=== PATIENT | female | born 1990 | race African-American/Black ===

== ENCOUNTER 2021-10-21 12:44 | Emergency (ER) | payer MEDICAID, SELFPAY ==
[2021-10-21 12:45] VITALS: BP 102/79; PULSE 82; RESP 16; TEMP 37.2; O2SAT 98; BMI 17.1
[2021-10-21 13:25] VITALS: O2SAT 98
--- NOTE | 2021-10-21 13:50 | RAD_ITS ---
STUDY: X-RAY CHEST REASON FOR EXAM: Female, 31 years old. CHEST PAIN cough TECHNIQUE: XR Chest 2 Views COMPARISON: None FINDINGS: There is no demonstrated pleural abnormality. Normal size heart. Normal mediastinum and harvey. Normal visualized pulmonary arteries. Normal visualized aortic arch and descending thoracic aorta. Normal visualized thoracic spine. Normal visualized ribs, clavicles, and shoulders. There is no demonstrated abnormality of the visualized soft tissue structures of the upper abdomen. RAD/Chest PA and Lateral IMPRESSION: There are no acute findings. Electronically Signed: Alec Schmitz MD at 14:05 EDT ,
[2021-10-21] MEDS: Ibuprofen 200 MG Tablet 400 MG PO (13:55)
--- NOTE | 2021-10-21 14:40 | EDS_ITS ---
HPI HPI - URI History of Present Illness Chief Complaint: Cough Informant: patient Narrative Narrative: Patient is a 31-year-old female with history of tobacco use presenting with cough. She notes she developed a cold 1 week ago and was recovering and feeling better when she started to feel worse today. She reports increased cough and now feels short of breath from coughing and her chest hurts when she coughs. She states her cough is been productive of some sputum. Has continued to have rhinorrhea. She denies any fever or chills. Did not take any medicine prior to arrival but has been using Vicks vapor rub. Denies any leg swelling. Denies any history of DVT or PE. Was worried she might have pneumonia so she came to the ER. Denies any known history of asthma. ROS ROS ED Constitutional Constitutional ED: Denies chills or fever(s) Eyes Eyes: Denies change in vision or diplopia ENT ENT ED: Reports rhinorrhea; Denies ear pain or sore throat Cardiovascular Cardiovascular: Reports chest pain; Denies palpitations Respiratory/Chest Respiratory/Chest: Reports cough; Denies dyspnea or dyspnea on exertion Gastrointestinal Gastrointestinal: Denies nausea or vomiting Musculoskeletal Musculoskeletal: Reports myalgias; Denies arthralgias Integumentary Denies rash Neurologic Neurologic: Denies headache(s) or weakness Psychiatric Psychiatric: Denies anxiety PFSH PFSH Medical History no medical history Home Medications albuterol sulfate 90 mcg/actuation aerosol inhaler (Ventolin HFA) 1 - 2 puff inhalation Q4H PRN PRN Wheezing or cough #1 inh 10/21/21 [Rx Last Taken Unknown] guaifenesin 600 mg tablet, extended release 12 hr (Mucinex) 600 mg PO Q12H PRN congestion #20 tabs 10/21/21 [Rx Last Taken Unknown] ibuprofen 400 mg tablet 400 mg PO Q6H PRN fever or pain #20 tabs 10/21/21 [Rx Last Taken Unknown] Allergy/AdvReac Type Severity Reaction Status Date / Time Penicillins [PCN] Allergy Hives Verified 10/21/21 12:45 Surgical History no surgical history Social History Smoking Status: Never smoker EXAM Physical Exam Const Vital Signs: 10/21/21 12:45 10/21/21 13:25 Temperature 98.9 F Temperature Source Temporal Pulse Rate 82 Respiratory Rate 16 Respiratory Effort Normal Respiratory Depth Normal Respiratory Pattern Normal Blood Pressure 102/79 Blood Pressure Mean 86 Pulse Ox 98 Oxygen Delivery Method Room Air Room Air Positive well nourished and well developed General Appearance ED: well developed HEENT Reports moist mucous membranes HEENT Narrative: Clear rhinorrhea present normocephalic and atraumatic Throat: posterior oropharynx normal Eyes PERRL and EOMs intact bilaterally Resp clear to auscultation bilaterally Resp Narrative: Coarse breath sounds scattered throughout Auscultation: Negative for rales or wheezes Cardio no murmurs Rate: regular rate Rhythm: regular rhythm GI non-tender and non-distended Palpation: soft Back/Spine no CVA tenderness Extremity normal to inspection and full ROM Neuro oriented x3 Sensorium / Orientation: alert Motor Exam: Negative for general weakness Psych mental status grossly normal Skin Lesions: no lesions Rashes: no rashes MDM MDM MDM Narrative Medical decision making narrative: Patient evaluated for worsening cough. She appears nontoxic and in no acute distress. She has normal vital signs. Chest x-ray obtained 2 view interpreted by myself as well as radiology shows no acute process. Suspect patient has bronchitis. Her chest pain seems to be associated with her coughing only. I do not think this is ACS. She has no risk factors for PE. She will be started on an albuterol inhaler , Motrin and Mucinex. Is given a work note per her request. Counseled return precautions. She verbalized agreement understands plan. Discharged home in stable condition. Is given a dose of Motrin in the emergency room. Radiography Diagnostic Testing: Clinical Impression(s) from Imaging Studies Chest X-Ray 10/21/21 13:50 IMPRESSION: There are no acute findings. Electronically Signed: Alec Schmitz MD at 14:05 EDT , Discharge Plan Triage Chief Complaint: Cough ED Provider: Caroline Cho Dx/Rx/DC Orders Clinical Impression: Bronchitis, Acute viral syndrome Instructions: ED Bronchitis with Wheezing (Adult) Prescriptions: New albuterol sulfate [Ventolin HFA] 90 mcg/actuation HFA aerosol inhaler 1 - 2 puff inhalation Q4H PRN PRN (Reason: Wheezing or cough) Qty: 1 0RF guaifenesin [Mucinex] 600 mg tablet extended release 12hr 600 mg PO Q12H PRN (Reason: congestion) Qty: 20 0RF ibuprofen 400 mg tablet 400 mg PO Q6H PRN (Reason: fever or pain) Qty: 20 0RF Primary Care Provider: Care Physician,No Primary Referrals: Hector Webster, [Med Staff - Insert Molding Operator] - Care Physician,No Primary [Primary Care Provider] - Disposition Disposition: Home, Self Care
== END 2021-10-21 15:10 | disposition home or self-care (01) ==
PROVIDERS: Emergency Provider Emergency Medicine; Visit Provider Emergency Medicine
DX: J40 Bronchitis, not specified as acute or chronic (principal); B34.9 Viral infection, unspecified
CPT/HCPCS: 71046; 99283

== ENCOUNTER 2021-11-07 13:19 | Emergency (ER) | payer MEDICAID, SELFPAY ==
[2021-11-07 13:21] VITALS: BP 105/63; PULSE 97; RESP 15; TEMP 36.8; O2SAT 100; BMI 17.4
--- NOTE | 2021-11-07 13:46 | ED.VIS.BACK ---
HPI History of Present Illness Chief Complaint: Back Informant: patient Onset/Context/Timing Onset: Month(s) Context: Gradual Onset Chronic pain exacerbated by: Lifting at work yesterday Injury: lifting Timing: Continuous Quality: Sharp, Aching and Burning Location: Lumbar and Buttock Worsened by: improves with Lifting and - (Deep breathing, cold weather) Relieved by: Medications (Ibuprofen) Associated Symptoms Associated Symptoms: Negative for Numbness, Tingling, Radiation to Right Leg, Radiation to Left Leg, Fever, Abdominal Pain, Dysuria, Unable to Ambulate, Unable to Transfer, Urinary Retention, Urinary Incontinence, Constipation or Fecal Incontinence Narrative Narrative: Patient presents with back pain that has been constant for months. Patient states it is gradually gotten worse. Patient states she was doing some lifting at work yesterday which made it worse. Patient states her pain is sharp, aching, and burning. Patient states her pain is mainly over her lower lumbar area and into her buttocks. Patient denies any pain going down her legs. Patient denies any paresthesias or weakness. Patient denies any bowel or bladder changes. Patient denies any saddle anesthesia. Patient states her pain is also worse with deep breathing and being in the cold. Patient states ibuprofen has been helping with the pain somewhat but it has not completely relieve the pain. PFSH PFSH Medical History no medical history no medical history Home Medications albuterol sulfate 90 mcg/actuation aerosol inhaler (Ventolin HFA) 1 - 2 puff inhalation Q4H PRN PRN Wheezing or cough #1 inh 10/21/21 [Rx Last Taken Unknown] guaifenesin 600 mg tablet, extended release 12 hr (Mucinex) 600 mg PO Q12H PRN congestion #20 tabs 10/21/21 [Rx Last Taken Unknown] ibuprofen 600 mg tablet 600 mg PO Q8H PRN PRN pain #20 TABLETS 11/07/21 [Rx Last Taken Unknown] Allergy/AdvReac Type Severity Reaction Status Date / Time Penicillins [PCN] Allergy Hives Verified 11/07/21 13:21 Surgical History (Updated 11/07/21 @ 13:[address] Mayur White DO) Hx of removal of cyst Social History Smoking Status: Current every day smoker tobacco type: cigarettes ROS ROS ED Constitutional Constitutional ED: Denies chills or fever(s) Eyes Eyes: Denies blurry vision or change in vision ENT ENT ED: Denies rhinorrhea or sore throat Cardiovascular Cardiovascular: Reports chest pain; Denies palpitations Respiratory/Chest Respiratory/Chest: Denies cough or dyspnea Gastrointestinal Gastrointestinal: Denies nausea or vomiting Genitourinary Genitourinary ED: Denies dysuria or hematuria Musculoskeletal Musculoskeletal: Reports back pain; Denies neck pain Integumentary Denies abscess or rash Neurologic Neurologic: Denies headache(s) or weakness Allergic/Immunologic Allergic/Immunologic ED: Denies mouth swelling or urticaria EXAM Physical Exam Const Vital Signs: 11/07/21 13:21 Temperature 98.2 F Temperature Source Temporal Pulse Rate 97 Respiratory Rate 15 Blood Pressure 105/63 Blood Pressure Mean 77 Pulse Ox 100 Oxygen Delivery Method Room Air Positive well nourished and well developed General Appearance ED: well developed and NAD HEENT Reports moist mucous membranes Neck supple and no JVD Back/Spine Back/Spine Narrative: There is tenderness and mild spasm of the lumbar paraspinal muscles. There is no midline tenderness. There is no bony crepitance or step-off. Range of motion was slightly limited in all motions of the lumbar spine secondary to pain. Straight leg raises were negative bilaterally. Strength is 5/5 bilaterally in lower extremities. There are no sensory deficits noted. Deep tendon reflexes are 2/4 bilaterally in the lower extremities. Lumbar Spine / Lower Back: ROM limited and straight leg raise negative bilaterally Extremity General Extremety ED: Negative for edema or tenderness General Extremity: Negative for edema Neuro oriented x3 and no sensory deficits noted Sensorium / Orientation: alert Motor Exam: strength 5/5 throughout Deep Tendon Reflexes: Rt Patellar (L4): 2+, Lt Patellar (L4): 2+, Rt Ankle (S1): 2+ and Lt Ankle (S1): 2+ Deep Tendon Reflexes Back: Rt Patellar (L4): 2+, Lt Patellar (L4): 2+, Rt Ankle (S1): 2+ and Lt Ankle (S1): 2+ Psych mental status grossly normal MDM MDM MDM Narrative Medical decision making narrative: Patient was given a dose of ibuprofen here. X-rays of the lumbar spine were obtained. There are 2 views. On my interpretation, there is no acute fracture or spondylolisthesis. There is a questionable scoliosis versus muscle spasm. Radiologist also interpreted the x-rays and agrees. Patient was advised of her findings. Patient was given a prescription for ibuprofen. Patient was instructed to use ice to the area. Patient was instructed to follow-up with her primary care physician in 5 to 7 days. Patient understood and was agreeable with the plan. All questions were answered. Radiography X-Ray: LS SPine, Read by ED Physician, Read by Radiologist, Normal and Normal Bony Alignment Diagnostic Testing: Clinical Impression(s) from Imaging Studies Lumbar Spine X-Ray 11/07/21 14:05 IMPRESSION: Normal x-ray examination of the lumbar spine. Electronically Signed: Niko Swann MD at 14:32 EDT Reading Location ID and State: [facility] / [place] , Service support , Discharge Plan Triage Chief Complaint: Back ED Provider: Mayur White Dx/Rx/DC Orders Clinical Impression: Acute low back pain, Lumbosacral strain Instructions: ED Back Sprain/Strain Prescriptions: New ibuprofen 600 mg tablet 600 mg PO Q8H PRN PRN (Reason: pain) Qty: 20 0RF Discontinued ibuprofen 400 mg tablet 400 mg PO Q6H PRN (Reason: fever or pain) Qty: 20 0RF No Action albuterol sulfate [Ventolin HFA] 90 mcg/actuation HFA aerosol inhaler 1 - 2 puff inhalation Q4H PRN PRN (Reason: Wheezing or cough) Qty: 1 0RF guaifenesin [Mucinex] 600 mg tablet extended release 12hr 600 mg PO Q12H PRN (Reason: congestion) Qty: 20 0RF Stand Alone Forms: ED Work / School Excuse Primary Care Provider: Care Physician,No Primary Referrals: Hector Webster DO [Med Staff - Interlocking Machine Operator] - 5-7 Days Care Physician,No Primary [Primary Care Provider] - Disposition Disposition: Home, Self Care
[2021-11-07] MEDS: Ibuprofen 600 MG Tablet PO (13:54)
--- NOTE | 2021-11-07 14:05 | RAD_ITS ---
STUDY: X-RAY - LUMBAR SPINE REASON FOR EXAM: Female, 31 years old. Injury/Pain CHRONIC BACK PAIN. NO INJURY. SCOLIOSIS. TECHNIQUE: 2 view(s) of the lumbar spine were obtained. COMPARISON: None FINDINGS: Normal lumbar lordosis. There is no substantial scoliosis. There is a normal alignment of the vertebrae. Normal vertebral bodies and endplates. Normal disc space heights. There is no demonstrated fracture or compression deformity. The soft tissue structures are unremarkable. RAD/Lumbar Spine 2 or 3 Views IMPRESSION: Normal x-ray examination of the lumbar spine. Electronically Signed: Niko Swann MD at 14:32 EDT ,
== END 2021-11-07 15:10 | disposition home or self-care (01) ==
PROVIDERS: Emergency Provider Emergency Medicine; Visit Provider Emergency Medicine
DX: S39.012A Strain of muscle, fascia and tendon of lower back, initial encounter (principal); F17.210 Nicotine dependence, cigarettes, uncomplicated; X58.XXXA Exposure to other specified factors, initial encounter
CPT/HCPCS: 72100; 99283

== ENCOUNTER 2024-10-01 16:49 | Emergency (ER) | payer MEDICAID, SELFPAY ==
[2024-10-01 16:49] VITALS: BP 110/86; PULSE 105; RESP 18; TEMP 36.6; O2SAT 100; BMI 18.0
--- NOTE | 2024-10-01 17:17 | EDS_ITS ---
HPI History of Present Illness Chief Complaint: Upper Extremity Injury PFSH PFS Home Medications ?Medication ?Instructions ?Recorded ?Last Taken ?Type albuterol sulfate 90 mcg/actuation 1 - 2 puff inhalati on Q4H PRN PRN 10/21/21 Unknown Rx aerosol inhaler (Ventolin HFA) Wheezing or cough #1 in h guaifenesin 600 mg tablet, 600 mg PO Q12H PRN congesti on #20 10/21/21 Unknown Rx extended release 12 hr (Mucinex) tabs ibuprofen 600 mg tablet 600 mg PO Q8H PRN PRN pain # 20 11/07/21 Unknown Rx TABLETS prednisone 20 mg tablet 20 mg PO DAILY #5 tabs 10/01 Unknown Rx Allergy/AdvReac Type Severity Reaction Status Date / Time Penicillins (PCN) Allergy Hives Verified 10/01/24 16:51 Family History no significant family his Surgical History Hx of removal of cyst Social History Smoking Status: Current every day smoker tobacco type: cigarettes EXAM Physical Exam Const Vital Signs: 10/01/24 16:49 Temperature 98 F Temperature Source Oral Pulse Rate 105 H Respiratory Rate 18 Blood Pressure 110/86 H Blood Pressure Mean 94 Pulse Ox 100 Oxygen Delivery Method Room Air MDM MDM MDM Narrative Medical decision making narrative: HISTORY OF PRESENT ILLNESS: Chief complaint: Shoulder/arm pain 33-year-old female states she pulled a muscle a few weeks ago and reinjured it recently. Notes 2 weeks ago she noted pain in the left paracervical region, left trapezius and left rhomboid muscle. Notes he got better until this past Thursday when she reinjured it by stretching. REVIEW OF SYSTEMS: Pertinent positives: Left shoulder arm pain Pertinent negatives: [Neck pain, numbness or tingling PHYSICAL EXAM: Nursing triage notes reviewed, Vital signs reviewed Constitutional: please see mdm HENT: MMM Eyes: Pupils equal round and reactive to light, Extraocular muscles intact Neck: No stridor, no JVD, full neck ROM, TTP over left lateral cervical musculature Back: TTP over left trapezius muscle left rhomboid muscle Lungs: Clear to auscultation, No wheezing or rales. No increased work of breathing, no conversational dyspnea, no accessory muscle use, no nasal flaring. No respiratory distress noted Heart: Regular rate and rhythm, No murmurs, No rubs and No gallops, 2+ distal pulses (radial, femoral, posterior tibial) in all extremities Extremities: No edema Neuro: Intact 5/5 strength with ok sign (median), intact finger abduction (ulnar) intact wrist extension (radial n). Intact sensation in the radial, ulnar, and median nerve distributions. Skin: No rash or lesions noted MEDICAL DECISION MAKING: Chief Complaint: please see HPI External records reviewed: Reviewed prior imaging studies Factors affecting care: none Social determinants of health: none History obtained from others: none Consults: none [facility] Narrative: Patient was initially hemodynamically stable, afebrile and nontoxic-appearing. Exam consistent musculoskeletal etiology. No sign of neurovascular compromise left upper extremity. Treated symptomatically anti-inflammatories Gave prescriptions for prednisone Encouraged rest, ice, lidocaine patches or other topical therapies along with anti-inflammatory such as ibuprofen. Pain reliever such as Tylenol. As well as prednisone. Strict return precautions were discussed. Sling was provided. The patient and/or family, caregivers express understanding. The patient and/or family, caregivers agrees with the plan. Shared decision making: I will have a discussion with the patient and or visitors regarding risk/benefits of further testing or admission. They will be made aware of of the risk/benefits inherent in this decision they will be given the opportunity to voice understanding. Total critical care time today provided was at least 0 minutes. This excludes separately billable procedures. Critical care time (if documented) is secondary to the patient having high probability of clinically significant/life threatening deterioration in the patient's condition which required my urgent intervention. Impression: 1. Cervical muscular strain 2. Trapezius muscle strain Dispo: Discharge home This note was generated with [employer] dictation software. It may contain incorrect words, spelling, and punctuation that were not noted in review of the chart prior to signing. Discharge Plan Triage Chief Complaint: Upper Extremity Injury ED Provider: Sagar Antonio Dx/Rx/DC Orders Instructions: ED Muscle Strain, Extremity Prescriptions: New prednisone 20 mg tablet 20 mg PO DAILY Qty: 5 0RF No Action albuterol sulfate [Ventolin HFA] 90 mcg/actuation HFA aerosol inhaler 1 - 2 puff inhalation Q4H PRN PRN (Reason: Wheezing or cough) Qty: 1 0RF guaifenesin [Mucinex] 600 mg tablet extended release 12hr 600 mg PO Q12H PRN (Reason: congestion) Qty: 20 0RF ibuprofen 600 mg tablet 600 mg PO Q8H PRN PRN (Reason: pain) Qty: 20 0RF Primary Care Provider: Care Physician,No Primary Referrals: Jacob Milner MD [Med Staff - Barge Captain] - Activity Restrictions/Additional Instructions: Thank you for trusting us with your care today! Your exam is consistent with a musculoskeletal strain. This resolves with rest, anti-inflammatories and slow return to activity. Please take prednisone as prescribed Please take Tylenol (2 pills, 650 mg), ibuprofen (2 pills, 400 mg) every 6 hours as needed for pain and fever control. Please use other topical pain relieving modalities such as lidocaine patches, IcyHot, diclofenac cream. Please return to the emergency department if your symptoms change or worsen. Please follow with your primary care physician for further outpatient evaluation and management. Print Language: Turkmen Disposition Disposition: Home, Self Care Discharge Date/Time: 10/01/24 17:58
--- OUTSIDE RECORDS SUMMARY | 2024-10-01 17:40 | XMS RPT_ITS | CCD ---
Author Organization [place] [employer] Inform ion Partnership [facility] Care Team Providers Care Academic Affairs Specialist Name Role Phone No, Physician Primary Care Provider UnavailAIDEN Vela Attending Unavai lable NO, PHYSICIAN Primary Care Unavailable AIDEN NOE Admitting Unavai lable NO, PHYSICIAN Primary Care Unavailable PRINCESS ADKINS Attending Unavailab le NO, PHYSICIAN Primary Care Unavailable NORMA NEWTON Attending Unavaila ble BURNEKANORMA Admitting Unavaila ble NO, PHYSICIAN Primary Care Unavailable LISE MAZARIEGOS Attending Unavailable LISE MAZARIEGOS Admitting Unavailable NO, PHYSICIAN Primary Care Unavailable ZOHRA COURTNEY Attending Unavailable ZOHRA COURTNEY Admitting Unavailable CHERELLE LOZA Attending Unavailable CHERELLE LOZA Primary Care Unavailable CHERELLE LOZA Admitting Unavailable CHERELLE LOZA Primary Care Unavailable Cherelle Loza Primary Care Provider No, Physician Primary Care Provider Unavailabl e Care Physician, No Primary Primary Care Unava ilable Caroline Cho Attending Unavailable Mayur White Attending Unavailable Care Physician, No Primary Primary Care Unava ilable Allergies Allergy Classification Reported Allergen(s) Allergy Type Date of Onset Reaction(s) Facility (13 sources) Penicillins; Translations: [Unknown] Propensity to adverse reactions to drug 11-19-2018 [facility] Medications Current Medications Medication Drug Class(es) Dates Sig (Normalized) Sig (Original) [id number] 200 actuat albuterol 0.09 mg/actuat metered dose inhaler (2 sources) beta2-Adrenergic Agonist Start: 10-21-2021 take 1 puff(s) by inhalation every four hours as needed Albuterol Sulfate (Ventolin Hfa) 90 mcg/actuation HFA aerosol inhaler Active 1 - 2 PUFF INHALATION EVERY 4 HOURS NEEDED October 21, 2021 12:00am famotidine 20 mg oral tablet (5 sources) Histamine-2 Receptor Antagonist Start: 12-13-2018 End: 12-16-2018 take 1 tablet by mouth twice daily famotidine (PEPCID) 20 MG tablet Take 1 (one) tablet (20 mg total) by mouth 2 (two) times a day for 3 days . 6 tablet 0 12/13/2018 Active 12 hr guaiFENesin 600 mg extended release oral tablet (2 sources) Start: 10-21-2021 take 1 tablet by mouth every twelve hours, then take 1 tablet by mouth every twelve hours Guaifenesin (Mucinex) 600 mg tablet extended release 12hr Active 600 MG PO Q12H October 21, 2021 12:00am homatropine methylbromide 0.3 mg/ml / HYDROcodone bitartrate 1 mg/ml oral solution (2 sources) Opioid Agonist, Cholinergic Muscarinic Agonist Start: 11-19-2018 End: 11-29-2018 HYDROcodone-homat ropine (HYCODAN) 5-1.5 mg/5 mL (5 mL) syrup Indications: Community acquired pneumonia of right lower lobe of lung (HCC) Take 5 mL by mouth every 6 (six) hours as needed for cough . 120 mL 0 11/19/2018 11/29/2018 Active hydrOXYzine pamoate 50 mg oral capsule (1 source) Antihistamine Start: 12-13-2018 End: 01-12-2019 take 1 capsule by mouth three times daily as needed hydrOXYzine (VISTARIL) 50 MG capsule Take 1 (one) capsule (50 mg total) by mouth 3 (three) times a day as needed for itching . 30 capsule 0 12/13/2018 01/12/2019 Active ibuprofen 600 mg oral tablet (3 sources) Nonsteroidal Anti-inflammatory Drug Start: 11-07-2021 take 600 mg by mouth every eight hours as needed Ibuprofen Active 600 MG PO EVERY 8 HOURS NEEDED November 07, 2021 12:00am Start: 10-21-2021 End: 11-07-2021 take 400 mg by mouth every six hours Ibuprofen Discontinued 400 MG PO EVERY 6 HOURS October 21, 2021 12:00am November 07, 2021 3:04pm indomethacin 25 mg oral capsule (1 source) Nonsteroidal Anti-inflammatory Drug Start: 11-25-2018 End: 12-02-2018 take 1 capsule by mouth three times daily at mealtime indomethacin (INDOCIN) 25 MG capsule Take 1 (one) capsule (25 mg total) by mouth 3 (three) times a day with meals for 7 days . 21 capsule 0 11/25/2018 12/02/2018 Active miconazole nitrate 20 mg/ml vaginal cream (2 sources) Azole Antifungal Start: 08-26-2019 End: 09-02-2019 miconazole (Miconazole 7) 2 % vaginal cream Indications: Vaginal discharge Insert 1 applicator into the vagina nightly for 7 days . 45 g 0 08/26/2019 09/02/2019 Active oseltamivir 75 mg oral capsule (1 source) Neuraminidase Inhibitor Start: 01-19-2019 End: 01-24-2019 take 1 capsule by mouth twice daily oseltamivir (TAMIFLU) 75 MG capsule Take 1 (one) capsule (75 mg total) by mouth 2 (two) times a day for 5 days . 10 capsule 0 01/19/2019 01/24/2019 Active predniSONE 50 mg oral tablet (1 source) Start: 12-13-2018 End: 12-18-2018 take 1 tablet by mouth once daily predniSONE (DELTASONE) 50 MG tablet Take 1 (one) tablet (50 mg total) by mouth daily for 5 days . 5 tablet 0 12/13/2018 12/18/2018 Active Completed/Discontinued Medications Medication Drug Class(es) Dates Sig (Normalized) Sig (Original) acetaminophen 325 mg oral tablet (2 sources) Start: 01-19-2019 End: 01-19-2019 acetaminophen (TYLENOL) tablet 975 mg Start: 12-07-2018 End: 12-07-2018 acetaminophen (TYLENOL) tabl et 975 mg azithromycin 250 mg oral tablet (4 sources) Macrolide Antimicrobial Start: 11-19-2018 End: 12-13-2018 azithromycin (ZITHROMAX) 250 MG tablet zpack . 6 tablet 0 11/19/2018 12/13/2018 Discontinued dexamethasone phosphate 10 mg/ml injectable solution (1 source) Corticosteroid Start: 12-13-2018 End: 12-13-2018 dexamethasone (DECADRON) injection 10 mg diphenhydrAMINE hydrochloride 25 mg oral tablet (1 source) Histamine-1 Receptor Antagonist Start: 12-13-2018 End: 12-13-2018 diphenhydrAMINE (BENADRYL) oral solid 50 mg 1 ml ketorolac tromethamine 30 mg/ml injection (2 sources) Nonsteroidal Anti-inflammatory Drug, Cyclooxygenase Inhibitor Start: 01-19-2019 End: 01-19-2019 ketorolac (TORADOL) injection 30 mg Start: 11-19-2018 End: 11-19-2018 ketorolac (TORADOL) injectio n 60 mg potassium bicarbonate 25 meq effervescent oral tablet (1 source) Start: 12-07-2018 End: 12-07-2018 potassium bicarbonate (K-LYTE) 25 MEQ disintegrating tablet 50 mEq prenat.vits,bre,min-iro n-folic Tab (2 sources) Start: 12-07-2018 End: 12-13-2018 take 1 tablet by mouth once daily prenat.vits,bre,min-iron- folic Tab Take 1 tablet by mouth daily . 30 each 0 12/07/2018 12/13/2018 Discontinued Start: 12-07-2018 End: 01-06-2019 take 1 tablet by mouth once daily prenat.vits,bre,thv-paer-wxhic Tab Take 1 tablet by mouth daily . 30 each 0 12/07/2018 01/06/2019 Active Sodium Chloride (2 sources) Start: 12-07-2018 End: 12-07-2018 sodium chloride (PF) (NS) fl ush 5 mL Start: 11-24-2018 End: 11-25-2018 sodium chloride (PF) (NS) fl ush 5 mL Problems Active Problems Problem Classification Problem Date Documented Da te Episodic/Chronic Chronic obstructive pulmonary disease and bronchiectasis (2 sources) Bronchitis; Translations: [Bronchitis, not specified as acute or chronic] Episodic Deficiency and other anemia (2 sources) Anemia; Translations: [Anemia, unspecified type] Episodic Fluid and electrolyte disorders (1 source) Hypokalemia; Translations: [Hypokalemia] Episodic Genitourinary symptoms and ill-defined conditions (1 source) Increased frequency of urination; Translations: [Urinary frequency] Episodic Influenza (1 source) Influenza due to Influenza virus, type B; Translations: [Influenza B] Episodic Nonspecific chest pain (2 sources) Chest pain; Translations: [Chest pain, unspecified type] Episodic Other female genital disorders (1 source) Vaginal discharge; Translations: [Vaginal discharge] Episodic Other lower respiratory disease (1 source) Cough; Translations: [Cough] Episodic Other lower respiratory disease (1 source) Dyspnea; Translations: [Shortness of breath] Episodic Pneumonia (except that caused by tuberculosis or sexually transmitted disease) (1 source) Community acquired pneumonia; Translations: [Community acquired pneumonia of right lower lobe of lung (HCC)] Episodic Spondylosis; intervertebral disc disorders; other back problems (1 source) Acute low back pain; Translations: [Acute low back pain] Episodic Sprains and strains (1 source) Lumbosacral strain; Translations: [Strain of muscle, fascia and tendon of lower back, initial encounter] Episodic Unclassified (1 source) Low back pain, unspecified; Translations: [Low back pain, unspecified] Onset: 11-20-2021 Unclassified (1 source) Cough, unspecified; Translations: [Cough, unspecified] Onset: 11-18-2021 Viral infection (2 sources) Acute viral disease; Translations: [Viral infection, unspecified] Episodic Past or Other Problems Problem Classification Problem Date Documented Da te Episodic/Chronic Allergic reactions (1 source) Allergic urticaria; Translations: [Allergic urticaria] Episodic Results Test Name Value Interpretation Reference Range Facility Emergency Department Summary on 11-07-2021 Emergency Department Summary [facility] Medical Records Department [address] [place] [address] Emergency Department Summary 11/07/21 MR#: [id number] Acct: [id number] Name: PIPE GOMEZ Rep #: [id number] : 1990 31 From: Mayur White DO PCP: Care Physician,No Primary Status:DEP ER Location: ED HPI History of Present Illness Chief Complaint: Back Informant: patient Onset/Context/Timing Onset: Month(s) Context: Gradual Onset Chronic pain exacerbated by: Lifting at work yesterday Injury: lifting Timing: Continuous Quality: Sharp, Aching and Burning Location: Lumbar and Buttock Worsened by: improves with Lifting and - (Deep breathing, cold weather) Relieved by: Medications (Ibuprofen) Associated Symptoms Associated Symptoms: Negative for Numbness, Tingling, Radiation to Right Leg, Radiation to Left Leg, Fever, Abdominal Pain, Dysuria, Unable to Ambulate, Unable to Transfer, Urinary Retention, Urinary Incontinence, Constipation or Fecal Incontinence Narrative Narrative: Patient presents with back pain that has been constant for months. Patient states it is gradually gotten worse. Patient states she was doing some lifting at work yesterday which made it worse. Patient states her pain is sharp, aching, and burning. Patient states her pain is mainly over her lower lumbar area and into her buttocks. Patient denies any pain going down her legs. Patient denies any paresthesias or weakness. Patient denies any bowel or bladder changes. Patient denies any saddle anesthesia. Patient states her pain is also worse with deep breathing and being in the cold. Patient states ibuprofen has been helping with the pain somewhat but it has not completely relieve the pain. PFSH PFSH Medical History no medical history no medical history Home Medications albuterol sulfate 90 mcg/actuation aerosol inhaler (Ventolin HFA) 1 - 2 puff inhalation Q4H PRN PRN Wheezing or cough #1 inh 10/21/21 [Rx Last Taken Unknown] guaifenesin 600 mg tablet, extended release 12 hr (Mucinex) 600 mg PO Q12H PRN congestion #20 tabs 10/21/21 [Rx Last Taken Unknown] ibuprofen 600 mg tablet 600 mg PO Q8H PRN PRN pain #20 TABLETS 11/07/21 [Rx Last Taken Unknown] Allergy/AdvReac Type Severity Reaction Status Date / Time Penicillins [PCN] Allergy Hives Verified 11/07/21 13:21 Surgical History (Updated 11/07/21 @ 13:[address] Mayur White DO) Hx of removal of cyst Social History Smoking Status: Current every day smoker tobacco type: cigarettes ROS ROS ED Constitutional Constitutional ED: Denies chills or fever(s) Eyes Eyes: Denies blurry vision or change in vision ENT ENT ED: Denies rhinorrhea or sore throat Cardiovascular Cardiovascular: Reports chest pain; Denies palpitations Respiratory/Chest Respiratory/Chest: Denies cough or dyspnea Gastrointestinal Gastrointestinal: Denies nausea or vomiting Genitourinary Genitourinary ED: Denies dysuria or hematuria Musculoskeletal Musculoskeletal: Reports back pain; Denies neck pain Integumentary Denies abscess or rash Neurologic Neurologic: Denies headache(s) or weakness Allergic/Immunologic Allergic/Immunologic ED: Denies mouth swelling or urticaria EXAM Physical Exam Const Vital Signs: 11/07/21 13:21 Temperature 98.2 F Temperature Source Temporal Pulse Rate 97 Respiratory Rate 15 Blood Pressure 105/63 Blood Pressure Mean 77 Pulse Ox 100 Oxygen Delivery Method Room Air Positive well nourished and well developed General Appearance ED: well developed and NAD HEENT Reports moist mucous membranes Neck supple and no JVD Back/Spine Back/Spine Narrative: There is tenderness and mild spasm of the lumbar paraspinal muscles. There is no midline tenderness. There is no bony crepitance or step-off. Range of motion was slightly limited in all motions of the lumbar spine secondary to pain. Straight leg raises were negative bilaterally. Strength is 5/5 bilaterally in lower extremities. There are no sensory deficits noted. Deep tendon reflexes are 2/4 bilaterally in the lower extremities. Lumbar Spine / Lower Back: ROM limited and straight leg raise negative bilaterally Extremity General Extremety ED: Negative for edema or tenderness General Extremity: Negative for edema Neuro oriented x3 and no sensory deficits noted Sensorium / Orientation: alert Motor Exam: strength 5/5 throughout Deep Tendon Reflexes: Rt Patellar (L4): 2+, Lt Patellar (L4): 2+, Rt Ankle (S1): 2+ and Lt Ankle (S1): 2+ Deep Tendon Reflexes Back: Rt Patellar (L4): 2+, Lt Patellar (L4): 2+, Rt Ankle (S1): 2+ and Lt Ankle (S1): 2+ Psych mental status grossly normal MDM MDM MDM Narrative Medical decision making narrative: Patient was given a dose of ibup (more content not included)... Normal [facility] Lumbar Spine 2 or 3 Viewson 11-07-2021 Lumbar Spine 2 or 3 Views [facility] Imaging Services [address] [place] [address] Lumbar Spine 2 or 3 Views MR#: [id number] Acct: [id number] Name: PIPE GOMEZ Rep #: [id number] : 1990 F 31 From: Niko velasquez MD PCP: Care Physician,No Primary Status: REG ER Study: Lumbar Spine 2 or 3 Views Date of Exam: Exam# [id number] Ordering Dr: Mayur White DO STUDY: X-RAY - LUMBAR SPINE REASON FOR EXAM: Female, 31 years old. Injury/Pain CHRONIC BACK PAIN. NO INJURY. SCOLIOSIS. TECHNIQUE: 2 view(s) of the lumbar spine were obtained. COMPARISON: None FINDINGS: Normal lumbar lordosis. There is no substantial scoliosis. There is a normal alignment of the vertebrae. Normal vertebral bodies and endplates. Normal disc space heights. There is no demonstrated fracture or compression deformity. The soft tissue structures are unremarkable. RAD/Lumbar Spine 2 or 3 Views IMPRESSION: Normal x-ray examination of the lumbar spine. Electronically Signed: Niko Swann MD at 14:32 EDT Reading Location ID and State: [address] [place] [address] , Service support , CC: Dr. Mayur White DO; No Primary Care Physician Hosting Engineer: Signed Normal [facility] Chest PA and Lateralon 10-21 Chest PA and Lateral [facility] Imaging Services [address] [place] [id number] Chest PA and Lateral MR#: [id number] Acct: [id number] Name: PIPE GOMEZ Rep #: [id number] : 1990 F 31 From: Alec Smith PCP: Care Physician,No Primary Status: [facility] ER Study: Chest PA and Lateral Date of Exam: 10/21/21 Exam# [id number] Ordering Dr: Caroline Cho DO STUDY: X-RAY CHEST REASON FOR EXAM: Female, 31 years old. CHEST PAIN cough TECHNIQUE: XR Chest 2 Views COMPARISON: None FINDINGS: There is no demonstrated pleural abnormality. Normal size heart. Normal mediastinum and harvey. Normal visualized pulmonary arteries. Normal visualized aortic arch and descending thoracic aorta. Normal visualized thoracic spine. Normal visualized ribs, clavicles, and shoulders. There is no demonstrated abnormality of the visualized soft tissue structures of the upper abdomen. RAD/Chest PA and Lateral IMPRESSION: There are no acute findings. Electronically Signed: Alec Schmitz MD at 14:05 EDT , CC: Dr. Caroline Cho DO; No Primary Care Physician Hosting Engineer: Signed Normal [facility] Emergency Department Summary on 10-21-2021 Emergency Department Summary [facility] Medical Records Department [address] [place] [address] Emergency Department Summary 10/21/21 MR#: [id number] Acct: [id number] Name: PIPE GOMEZ Rep #: [id number] : 1990 31 From: Caroline Cho DO PCP: Care Physician,No Primary Status:REG ER Location: ED HPI HPI - URI History of Present Illness Chief Complaint: Cough Informant: patient Narrative Narrative: Patient is a 31-year-old female with history of tobacco use presenting with cough. She notes she developed a cold 1 week ago and was recovering and feeling better when she started to feel worse today. She reports increased cough and now feels short of breath from coughing and her chest hurts when she coughs. She states her cough is been productive of some sputum. Has continued to have rhinorrhea. She denies any fever or chills. Did not take any medicine prior to arrival but has been using Vicks vapor rub. Denies any leg swelling. Denies any history of DVT or PE. Was worried she might have pneumonia so she came to the ER. Denies any known history of asthma. ROS [facility] ED Constitutional Constitutional ED: Denies chills or fever(s) Eyes Eyes: Denies change in vision or diplopia ENT ENT ED: Reports rhinorrhea; Denies ear pain or sore throat Cardiovascular Cardiovascular: Reports chest pain; Denies palpitations Respiratory/Chest Respiratory/Chest: Reports cough; Denies dyspnea or dyspnea on exertion Gastrointestinal Gastrointestinal: Denies nausea or vomiting Musculoskeletal Musculoskeletal: Reports myalgias; Denies arthralgias Integumentary Denies rash Neurologic Neurologic: Denies headache(s) or weakness Psychiatric Psychiatric: Denies anxiety PFSH PFSH Medical History no medical history Home Medications albuterol sulfate 90 mcg/actuation aerosol inhaler (Ventolin HFA) 1 - 2 puff inhalation Q4H PRN PRN Wheezing or cough #1 inh 10/21/21 [Rx Last Taken Unknown] guaifenesin 600 mg tablet, extended release 12 hr (Mucinex) 600 mg PO Q12H PRN congestion #20 tabs 10/21/21 [Rx Last Taken Unknown] ibuprofen 400 mg tablet 400 mg PO Q6H PRN fever or pain #20 tabs 10/21/21 [Rx Last Taken Unknown] Allergy/AdvReac Type Severity Reaction Status Date / Time Penicillins [PCN] Allergy Hives Verified 10/21/21 12:45 Surgical History no surgical history Social History Smoking Status: Never smoker EXAM Physical Exam Const Vital Signs: 10/21/21 12:45 10/21/21 13:25 Temperature 98.9 F Temperature Source Temporal Pulse Rate 82 Respiratory Rate 16 Respiratory Effort Normal Respiratory Depth Normal Respiratory Pattern Normal Blood Pressure 102/79 Blood Pressure Mean 86 Pulse Ox 98 Oxygen Delivery Method Room Air Room Air Positive well nourished and well developed General Appearance ED: well developed HEENT Reports moist mucous membranes HEENT Narrative: Clear rhinorrhea present normocephalic and atraumatic Throat: posterior oropharynx normal Eyes PERRL and EOMs intact bilaterally Resp clear to auscultation bilaterally Resp Narrative: Coarse breath sounds scattered throughout Auscultation: Negative for rales or wheezes Cardio no murmurs Rate: regular rate Rhythm: regular rhythm GI non-tender and non-distended Palpation: soft Back/Spine no CVA tenderness Extremity normal to inspection and full ROM Neuro oriented x3 Sensorium / Orientation: alert Motor Exam: Negative for general weakness Psych mental status grossly normal Skin Lesions: no lesions Rashes: no rashes MDM MDM MDM Narrative Medical decision making narrative: Patient evaluated for worsening cough. She appears nontoxic and in no acute distress. She has normal vital signs. Chest x-ray obtained 2 view interpreted by myself as well as radiology shows no acute process. Suspect patient has bronchitis. Her chest pain seems to be associated with her coughing only. I do not think this is ACS. She has no risk factors for PE. She will be started on an albuterol inhaler , Motrin and Mucinex. Is given a work note per her request. Counseled return precautions. She verbalized agreement understands plan. Discharged home in stable condition. Is given a dose of Motrin in the emergency room. Radiography Diagnostic Testing: Clinical Impression(s) from Imaging Studies Chest X-Ray 10/21/21 13:50 IMPRESSION: There are no acute findings. Electronically Signed: Alec Schmitz MD at 14:05 EDT Reading Location ID and State: [id number] / [place] , Service support , Discharge Plan Triage Chief Complaint: Cough ED Provider: Caroline Cho Dx/Rx/DC Orders Clinical Impression: Bronchitis, Acute viral syndrome (more content not included)... Normal [facility] URINALYSISon 08-26-2019 Bacteria Auto Ql (U) None Seen None Seen /hpf [facility] Bilirubin Ql (U) Negative Negative [facility] th Clarity Refractometry automated (U) Hazy Abnormal Clear [facility] Color (U) Yellow Colorless, Yellow [facility] Epithelial cells.squamous Auto (Urine sed) [#/Area] 3 [facility] Glucose Auto test strip (U) [Mass/Vol] Negative Negative mg/dL [facility] Hemoglobin Auto test strip Ql (U) Negative Negative [facility] Interpretation and review of laboratory results Abnormal [facility] Ketones (U) [Mass/Vol] Negative Negative mg/dL [facility] Leukocyte esterase Auto test strip Ql (U) Small Abnormal Negative [facility] Mucus Auto (Urine sed) [#/Area] Rare None Seen, Rare /lpf [facility] Nitrite Auto test strip Ql (U) Negative Negative [facility] pH (U) 6.0 [pH] [facility] Protein (U) [Mass/Vol] 30 Abnormal Negative mg/dL [facility] Comment on above: False positive resul ts may occur in urines with large amounts of hemoglobin, pH greater than 8.0, contrast medium, or disinfectants including ammonium compounds. Specific gravity (U) [Rel density] 1.026 High [facility] Urobilinogen (U) [Mass/Vol] 2.0 mg/dL Abnormal <2.0 [facility] WBC Auto (Urine sed) [#/Area] 2 [facility] Microscopic examination is performed on all urinalysis samples and only positive findings are reported. The test for blood on the chemical analytic portion of urinalysis may also be positive due to hemoglobinuria and myoglobinuria and if red blood cells are present they are quantified by microscopic examination. [facility] INFLUENZA A,B RAPID MOLECULA Kuldeep 01-19-2019 FLUAV RNA JANE+probe Ql (Unsp spec) Not Detected Not Detected [facility] FLUBV RNA JANE+probe Ql (Unsp spec) Detected Abnormal Not Detected [facility] Interpretation and review of laboratory results Abnormal [facility] Test Method: Nucleic Acid Amplification [facility] XR CHEST AP/PA AND LATon XR CHEST AP/PA AND LAT EXAMINATION: TWO XRAY VIEWS OF THE CHEST 01/19/2019 3:59 pm COMPARISON: 12/07/2018 HISTORY: ORDERING SYSTEM PROVIDED HISTORY: fever, cough; TECHNOLOGIST PROVIDED HISTORY: Illness/Other Acuity: Acute Reason for Exam: fever, cough Cancer History: n Surgery, Radiation History: n Type of Encounter: Initial Additional signs and symptoms: n FINDINGS: The lungs are clear. The pulmonary vascularity and harvey are normal. The cardiomediastinal silhouette is normal. IMPRESSION: No acute abnormality. Workstation ID: [id number] Dictated by: HONG PADRON on ThuJan 19, 2019 4:08:45 PM EST Transcribed by: HONG PADRON on ThuJan 19, 2019 4:08:45 PM EST Finalized by: HONG PADRON on ThuJan 19, 2019 4:08:45 PM EST Normal [facility] Comment on above: Order Comment: Injur y/Trauma or Illness?:Illness/Other How long have you had these symptoms (acute/chronic)?:Acute Reason for exam?:fever, cough History of cancer?:n Surgeries, chemotherapy, or radiation?:n Type of Exam?:Initial Additional signs and symptoms?:n No acute abnormality . Workstation ID: [id number] [facility] EXAMINATION: TWO XRA Y VIEWS OF THE CHEST 01/19/2019 3:59 pm COMPARISON: 12/07/2018 HISTORY: ORDERING SYSTEM PROVIDED HISTORY: fever, cough; TECHNOLOGIST PROVIDED HISTORY: Illness/Other Acuity: Acute Reason for Exam: fever, cough Cancer History: n Surgery, Radiation History: n Type of Encounter: Initial Additional signs and symptoms: n FINDINGS: The lungs are clear. The pulmonary vascularity and harvey are normal. The cardiomediastinal silhouette is normal. [facility], [facility] In Fu ji Speechq - 01/19/2019 4:11 PM EST EXAMINATION: TWO XRAY VIEWS OF THE CHEST 01/19/2019 3:59 pm COMPARISON: 12/07/2018 HISTORY: ORDERING SYSTEM PROVIDED HISTORY: fever, cough; TECHNOLOGIST PROVIDED HISTORY: Illness/Other Acuity: Acute Reason for Exam: fever, cough Cancer History: n Surgery, Radiation History: n Type of Encounter: Initial Additional signs and symptoms: n FINDINGS: The lungs are clear. The pulmonary vascularity and harvey are normal. The cardiomediastinal silhouette is normal. IMPRESSION: No acute abnormality. Workstation ID: [id number] [facility] EKGon 12-08-2018 Ordered by an unspecified provider. [facility] CBC WITH AUTO DIFFERENTIALon 12-07-2018 Basophils (Bld) [#/Vol] 0.04 10*3/uL [facility] Basophils/100 WBC (Bld) 0.9 % [facility] Eosinophils (Bld) [#/Vol] 0.06 10*3/uL [facility] Eosinophils/100 WBC (Bld) 1.3 % [facility] Erythrocyte distribution width (RBC) [Entitic vol] 18.6 % High 11.6 - 14.8 % [facility] Hematocrit (Bld) [Volume fraction] 26.7 % Low 36 - 46 % [facility] Hemoglobin (Bld) [Mass/Vol] 7.6 g/dL Low 12 - 16 g/dL [facility] Immature granulocytes (Bld) [#/Vol] 0.01 10*3/uL [facility] Immature granulocytes/100 WBC (Bld) 0.20 % [facility] Comment on above: The IG parameter is the percentage of metamyelocytes, myelocytes, and promyelocytes. Interpretation and review of laboratory results Abnormal [facility] Lymphocytes (Bld) [#/Vol] 2.01 10*3/uL [facility] Lymphocytes/100 WBC (Bld) 45.2 % [facility] MCH (RBC) [Entitic mass] 19.9 pg Low 26 - 34 pg [facility] MCHC (RBC) [Mass/Vol] 28.5 g/dL Low 31 - 37 g/dL [facility] MCV (RBC) [Entitic vol] 70.1 fL Low 80 - 100 fL [facility] Monocytes (Bld) [#/Vol] 0.39 10*3/uL [facility] Monocytes/100 WBC (Bld) 8.8 % [facility] Neutrophils (Bld) [#/Vol] 1.94 10*3/uL [facility] Neutrophils/100 WBC (Bld) 43.6 % [facility] Nucleated RBC (Bld) [#/Vol] 0.00 10*3/uL [facility] Nucleated RBC/100 WBC (Bld) [Ratio] 0.0 % [facility] Platelet mean volume (Bld) [Entitic vol] 9.7 fL 9 - 15.5 fL [facility] Platelets (Bld) [#/Vol] 293 10*3/uL [facility] RBC (Bld) [#/Vol] 3.81 10*6/uL Low [facility] WBC (Bld) [#/Vol] 4.45 10*3/uL Low [facility] Chem 7on 12-07-2018 Anion gap [Moles/Vol] 12 mmol/L 10 - 20 mmol/L [facility] Chloride [Moles/Vol] 104 mmol/L 98 - 108 mmol/L [facility] Creatinine [Mass/Vol] 0.62 mg/dL 0.4 - 1.1 mg/dL [facility] GFR/1.73 sq M predicted among non-blacks MDRD (S/P/Bld) [Vol rate/Area] The eGFR should be used for monitoring renal function only and not for medication dosing. [facility] GFR/1.73 sq M.predicted CKD-EPI (S/P/Bld) [Vol rate/Area] 143 >=60 mL/min/1.73 m2 [facility] Glucose [Mass/Vol] 97 mg/dL 65 - 99 mg/dL [facility] HCO3 [Moles/Vol] 25 mmol/L 21 - 32 mmol/L [facility] Interpretation and review of laboratory results Abnormal [facility] Potassium [Moles/Vol] 3.2 mmol/L Low 3.5 - 5.1 mmol/L [facility] Sodium [Moles/Vol] 138 mmol/L 135 - 145 mmol/L [facility] Urea nitrogen [Mass/Vol] 10 mg/dL 8 - 25 mg/dL [facility] Urea nitrogen/Creatinine [Mass ratio] 16.1 mg/mg [facility] ECG 12-LEADon 12-07-2018 Norma Newton MD 12/07/2018 7:43 PM EKG 12-lead Date/Time: 12/07/2018 7:43 PM Performed by: Norma Newton MD Authorized by: Chantel North PA-C Interpreted by ED attending physician Comparison: compared with previous ECG Similar to previous ECG Comparison to previous [id number], 11-21-18 Rhythm: sinus rhythm BPM: 74 ST Segments: ST segments normal T Waves: T waves normal T Inversion: aVL Clinical impression: non-specific ECG [facility] NT Pro BNPon 12-07-2018 Interpretation and review of laboratory results Normal [facility] Natriuretic peptide.B prohormone N-Terminal [Mass/Vol] <50 0 - 300 pg/mL [facility] Pride Study Cut-offs Rule In: < /= 50 Years >450 pg/mL 51 Years - 75 Years >900 pg/mL 76 Years - 99 Years >1800 pg/mL Rule Out: All patients <300 pg/mL [facility] TROPONINon 12-07-2018 Troponin T.cardiac [Mass/Vol] ug/L <=14 ng/L [facility] Troponin T.cardiac [Mass/Vol] Normal [facility] XR CHEST AP/PA AND LATon XR CHEST AP/PA AND LAT EXAMINATION: TWO XRAY VIEWS OF THE CHEST 12/07/2018 7:05 pm COMPARISON: 11/24/2018. HISTORY: ORDERING SYSTEM PROVIDED HISTORY: CP and history of pneumonia; TECHNOLOGIST PROVIDED HISTORY: Illness/Other Acuity: Acute Reason for Exam: CP and history of pneumonia Cancer History: n Surgery, Radiation History: n Type of Encounter: Initial Additional signs and symptoms: no FINDINGS: The cardiac silhouette and mediastinal contours are normal. The lungs are clear. The costophrenic angles are sharp. No pneumothorax or pleural effusion. The visualized osseous structures are unremarkable. IMPRESSION: 1. No acute cardiopulmonary disease. Right lower lobe pneumonia has resolved. Workstation ID: [id number] Dictated by: JOYCE BUSTILLO on ThuDec 07, 2018 7:14:52 PM EDT Transcribed by: JOYCE BUSTILLO on ThuDec 07, 2018 7:14:52 PM EDT Finalized by: JOYCE BUSTILLO on ThuDec 07, 2018 7:14:52 PM EDT [facility] Comment on above: Order Comment: Injur y/Trauma or Illness?:Illness/Other How long have you had these symptoms (acute/chronic)?:Acute Reason for exam?:CP and history of pneumonia History of cancer?:n Surgeries, chemotherapy, or radiation?:n Type of Exam?:Initial Additional signs and symptoms?:no 1. No acute cardiopulmonary disease. Right lower lobe pneumonia has resolved. Workstation ID: [id number] [facility] Interface, Rad In Fu ji Speechq - 12/07/2018 7:17 PM EDT EXAMINATION: TWO XRAY VIEWS OF THE CHEST 12/07/2018 7:05 pm COMPARISON: 11/24/2018. HISTORY: ORDERING SYSTEM PROVIDED HISTORY: CP and history of pneumonia; TECHNOLOGIST PROVIDED HISTORY: Illness/Other Acuity: Acute Reason for Exam: CP and history of pneumonia Cancer History: n Surgery, Radiation History: n Type of Encounter: Initial Additional signs and symptoms: no FINDINGS: The cardiac silhouette and mediastinal contours are normal. The lungs are clear. The costophrenic angles are sharp. No pneumothorax or pleural effusion. The visualized osseous structures are unremarkable. IMPRESSION: 1. No acute cardiopulmonary disease. Right lower lobe pneumonia has resolved. Workstation ID: [id number] [facility] EXAMINATION: TWO XRA Y VIEWS OF THE CHEST 12/07/2018 7:05 pm COMPARISON: 11/24/2018. HISTORY: ORDERING SYSTEM PROVIDED HISTORY: CP and history of pneumonia; TECHNOLOGIST PROVIDED HISTORY: Illness/Other Acuity: Acute Reason for Exam: CP and history of pneumonia Cancer History: n Surgery, Radiation History: n Type of Encounter: Initial Additional signs and symptoms: no FINDINGS: The cardiac silhouette and mediastinal contours are normal. The lungs are clear. The costophrenic angles are sharp. No pneumothorax or pleural effusion. The visualized osseous structures are unremarkable. [facility] BMPon 11-25-2018 Anion gap [Moles/Vol] 14 mmol/L 10 - 20 mmol/L [facility] Calcium [Mass/Vol] 8.7 mg/dL 8.4 - 10. 2 mg/dL [facility] Chloride [Moles/Vol] 102 mmol/L 98 - 108 mmol/L [facility] Creatinine [Mass/Vol] 0.70 mg/dL 0.4 - 1.1 mg/dL [facility] GFR/1.73 sq M predicted among non-blacks MDRD (S/P/Bld) [Vol rate/Area] The eGFR should be used for monitoring renal function only and not for medication dosing. [facility] GFR/1.73 sq M.predicted CKD-EPI (S/P/Bld) [Vol rate/Area] 137 >=60 mL/min/1.73 m2 [facility] Glucose [Mass/Vol] 112 mg/dL High 65 - 99 mg/dL [facility] HCO3 [Moles/Vol] 28 mmol/L 21 - 32 mmol/L [facility] Interpretation and review of laboratory results Abnormal [facility] Potassium [Moles/Vol] 4.0 mmol/L 3.5 - 5.1 mmol/L [facility] Sodium [Moles/Vol] 140 mmol/L 135 - 145 mmol/L [facility] Urea nitrogen [Mass/Vol] 12 mg/dL 8 - 25 mg/dL [facility] Urea nitrogen/Creatinine [Mass ratio] 17.1 mg/mg [facility] CBC WITH AUTO DIFFERENTIALon 11-25-2018 Erythrocyte distribution width (RBC) [Entitic vol] 17.7 % High 11.6 - 14.8 % [facility] Hematocrit (Bld) [Volume fraction] 28.5 % Low 36 - 46 % [facility] Hemoglobin (Bld) [Mass/Vol] 8.0 g/dL Low 12 - 16 g/dL [facility] MCH (RBC) [Entitic mass] 19.5 pg Low 26 - 34 pg [facility] MCHC (RBC) [Mass/Vol] 28.1 g/dL Low 31 - 37 g/dL [facility] MCV (RBC) [Entitic vol] 69.3 fL Low 80 - 100 fL [facility] Nucleated RBC (Bld) [#/Vol] 0.00 10*3/uL [facility] Nucleated RBC/100 WBC (Bld) [Ratio] 0.0 % [facility] Platelet mean volume (Bld) [Entitic vol] 10.1 fL 9 - 15.5 fL [facility] Platelets (Bld) [#/Vol] 334 10*3/uL [facility] RBC (Bld) [#/Vol] 4.11 10*6/uL [facility] WBC (Bld) [#/Vol] 4.13 10*3/uL Low [facility] D-DIMER, QUANTITATIVEon 11-09 Fibrin D-dimer FEU (PPP) [Mass/Vol] 0.46 0.27 - 0.49 mcg/mL FEU [facility] Interpretation and review of laboratory results Normal [facility] A D-dimer concentration of <0.5 micrograms per milliliter FEU is considered a low probability for pulmonary embolus (PE) and deep venous thrombosis (DVT). Results of this test should always be interpreted in conjunction with the patient's medical history,clinical presentation, and other findings. Clinical diagnosis should not be based on the results of the D-dimer alone. [facility] MORPHOLOGYon 11-25-2018 Anisocytosis Ql (Bld) 1+ [facility] Hypochromia Ql (Bld) 3+ [facility] Microcytes Ql (Bld) 2+ [facility] Ovalocytes LM Ql (Bld) 1+ [facility] Platelets Large Auto Ql (Bld) Few [facility] Platelets LM Ql (Bld) Normal Normal [facility] Polychromasia LM Ql (Bld) 1+ [facility] Spherocytes LM Ql (Bld) Few [facility] Toxic granules LM Ql (Bld) Rare [facility] Manual Differentialon 2018 Basophils (Bld) [#/Vol] 0.12 10*3/uL [facility] Basophils/100 WBC (Bld) 3.0 % [facility] Eosinophils (Bld) [#/Vol] 0.12 10*3/uL [facility] Eosinophils/100 WBC (Bld) 3.0 % [facility] Lymphocytes (Bld) [#/Vol] 2.85 10*3/uL [facility] Lymphocytes/100 WBC (Bld) 69.0 % [facility] Metamyelocytes/100 WBC (Bld) 1.0 % [facility] Monocytes (Bld) [#/Vol] 0.25 10*3/uL Low [facility] Monocytes/100 WBC (Bld) 6.0 % [facility] Neutrophils (Bld) [#/Vol] 0.78 10*3/uL Low [facility] Neutrophils/100 WBC (Bld) 18.0 % [facility] Otheron 11-25-2018 Interpretation and review of laboratory results Abnormal [facility] POC Urine Pregnancyon 2018 HCG ( test) Ql (U) Negative Negative [facility] Internal Control Pass [facility] Interpretation and review of laboratory results Normal [facility] Specific gravity (U) [Rel density] [facility] TROPONINon 11-25-2018 Troponin T.cardiac [Mass/Vol] ug/L <=14 ng/L [facility] Troponin T.cardiac [Mass/Vol] Normal [facility] XR CHEST AP/PA AND LATon XR CHEST AP/PA AND LAT EXAMINATION: TWO XRAY VIEWS OF THE CHEST 11/24/2018 11:09 pm COMPARISON: 11/19/2017 HISTORY: ORDERING SYSTEM PROVIDED HISTORY: chestj tightness w/ L sided pain; TECHNOLOGIST PROVIDED HISTORY: Illness/Other Acuity: Acute Reason for Exam: chest tightness w/ L sided pain Cancer History: n Surgery, Radiation History: n Type of Encounter: Subsequent/Follow-up Additional signs and symptoms: FINDINGS: There is an infiltrate within the right lung base. No effusion is identified. The heart size is normal. IMPRESSION: Improved aeration of the right lung base compared to the previous exam of 11/19/2018. Workstation ID: [id number] Dictated by: HOLLAND GOYAL on ThuNov 24, 2018 11:37:13 PM EDT Transcribed by: HOLLAND GOYAL on ThuNov 24, 2018 11:37:13 PM EDT Finalized by: HOLLAND GOYAL on ThuNov 24, 2018 11:37:13 PM EDT [facility] Comment on above: Order Comment: Injur y/Trauma or Illness?:Illness/Other How long have you had these symptoms (acute/chronic)?:Acute Reason for exam?:chest tightness w/ L sided pain History of cancer?:n Surgeries, chemotherapy, or radiation?:n Type of Exam?:Subsequent/Follow-up 11/19/18 xr chest Additional signs and symptoms?: ECG 12-LEADon 11-24-2018 Interpretation and review of laboratory results Abnormal [facility] Princess bergman MD 11/24/2018 11:29 PM EKG 12-lead Date/Time: 11/24/2018 11:28 PM Performed by: Princess Adkins MD Authorized by: Gaye Marshall PA-C Interpreted by ED attending physician Previous ECG: no previous ECG available Rhythm: sinus rhythm BPM: 54 Conduction: conduction normal normal CA interval normal QRS interval normal QT interval Other findings: early repolarization Clinical impression: abnormal ECG Comments: Significant baseline artifact. T wave inversion lead aVL. J-point elevation in multiple leads II, III, aVF, V3 V4 V5 V6. T wave inversion in aVL. [facility] XR CHEST AP/PA AND LATon Interface, Rad In Fu ji Speechq - 11/24/2018 11:40 PM EDT EXAMINATION: TWO XRAY VIEWS OF THE CHEST 11/24/2018 11:09 pm COMPARISON: 11/19/2017 HISTORY: ORDERING SYSTEM PROVIDED HISTORY: chestj tightness w/ L sided pain; TECHNOLOGIST PROVIDED HISTORY: Illness/Other Acuity: Acute Reason for Exam: chest tightness w/ L sided pain Cancer History: n Surgery, Radiation History: n Type of Encounter: Subsequent/Follow-up Additional signs and symptoms: FINDINGS: There is an infiltrate within the right lung base. No effusion is identified. The heart size is normal. IMPRESSION: Improved aeration of the right lung base compared to the previous exam of 11/19/2018. Workstation ID: [id number] [facility] Improved aeration of the right lung base compared to the previous exam of 11/19/2018. Workstation ID: [id number] [facility] EXAMINATION: TWO XRA Y VIEWS OF THE CHEST 11/24/2018 11:09 pm COMPARISON: 11/19/2017 HISTORY: ORDERING SYSTEM PROVIDED HISTORY: chestj tightness w/ L sided pain; TECHNOLOGIST PROVIDED HISTORY: Illness/Other Acuity: Acute Reason for Exam: chest tightness w/ L sided pain Cancer History: n Surgery, Radiation History: n Type of Encounter: Subsequent/Follow-up Additional signs and symptoms: FINDINGS: There is an infiltrate within the right lung base. No effusion is identified. The heart size is normal. [facility] XR CHEST AP/PA AND LATon XR CHEST AP/PA AND LAT EXAMINATION: TWO XRAY VIEWS OF THE CHEST 11/19/2018 7:15 pm COMPARISON: None. HISTORY: ORDERING SYSTEM PROVIDED HISTORY: cough; TECHNOLOGIST PROVIDED HISTORY: Illness/Other Acuity: Acute Reason for Exam: cough Cancer History: n Surgery, Radiation History: n Type of Encounter: Initial Additional signs and symptoms: n FINDINGS: Focal infiltrate in the lateral basal segment of the right lower lobe consistent with pneumonia. The lungs otherwise are clear. There is no pleural fluid. The cardiomediastinal silhouette is unremarkable. IMPRESSION: Right lower lobe pneumonia. Workstation ID: [id number] Dictated by: PETER CORTES on ThuNov 19, 2018 7:29:36 PM EDT Transcribed by: PETER CORTES on ThuNov 19, 2018 7:29:36 PM EDT Finalized by: PETER CORTES on ThuNov 19, 2018 7:29:36 PM EDT [facility] Comment on above: Order Comment: Injur y/Trauma or Illness?:Illness/Other How long have you had these symptoms (acute/chronic)?:Acute Reason for exam?:cough History of cancer?:n Surgeries, chemotherapy, or radiation?:n Type of Exam?:Initial Additional signs and symptoms?:n Right lower lobe pneumonia. Workstation ID: [id number] [facility] EXAMINATION: TWO XRA Y VIEWS OF THE CHEST 11/19/2018 7:15 pm COMPARISON: None. HISTORY: ORDERING SYSTEM PROVIDED HISTORY: cough; TECHNOLOGIST PROVIDED HISTORY: Illness/Other Acuity: Acute Reason for Exam: cough Cancer History: n Surgery, Radiation History: n Type of Encounter: Initial Additional signs and symptoms: n FINDINGS: Focal infiltrate in the lateral basal segment of the right lower lobe consistent with pneumonia. The lungs otherwise are clear. There is no pleural fluid. The cardiomediastinal silhouette is unremarkable. [facility], [facility] In [facility] Speechq - 11/19/2018 7:32 PM EDT EXAMINATION: TWO XRAY VIEWS OF THE CHEST 11/19/2018 7:15 pm COMPARISON: None. HISTORY: ORDERING SYSTEM PROVIDED HISTORY: cough; TECHNOLOGIST PROVIDED HISTORY: Illness/Other Acuity: Acute Reason for Exam: cough Cancer History: n Surgery, Radiation History: n Type of Encounter: Initial Additional signs and symptoms: n FINDINGS: Focal infiltrate in the lateral basal segment of the right lower lobe consistent with pneumonia. The lungs otherwise are clear. There is no pleural fluid. The cardiomediastinal silhouette is unremarkable. IMPRESSION: Right lower lobe pneumonia. Workstation ID: [id number] [facility] Vital Signs Date Time Vital Sign Value Performing Clinician Facility 11-07-2021 13:21-0400 Body height 167.64 cm [facility] Work Phone: 11-07-2021 13:21-0400 Body mass index (BMI) [Ratio] 17.4 kg/m2 [facility] Work Phone: 11-07-2021 13:21-0400 Body temperature 98.2 [degF] [facility] Work Phone: 11-07-2021 13:21-0400 Body weight 48.9 kg [facility] Work Phone: 11-07-2021 13:21-0400 Diastolic blood pressure 63 mm[Hg] [facility] Work Phone: 11-07-2021 13:21-0400 Heart rate 97 /min [facility] Work Phone: 11-07-2021 13:21-0400 Respiratory rate 15 /min [facility] Work Phone: 11-07-2021 13:21-0400 SaO2% (BldA) [Mass fraction] 100 % [facility] Work Phone: 11-07-2021 13:21-0400 Systolic blood pressure 105 mm[Hg] [facility] Work Phone: 10-21-2021 12:45-0400 Body height 167.64 cm [facility] Work Phone: 10-21-2021 12:45-0400 Body mass index (BMI) [Ratio] 17.1 kg/m2 [facility] Work Phone: 10-21-2021 12:45-0400 Body temperature 98.9 [degF] [facility] Work Phone: 10-21-2021 12:45-0400 Body weight 48.08 kg [facility] Work Phone: 10-21-2021 12:45-0400 Diastolic blood pressure 79 mm[Hg] [facility] Work Phone: 10-21-2021 12:45-0400 Heart rate 82 /min [facility] Work Phone: 10-21-2021 12:45-0400 Respiratory rate 16 /min [facility] Work Phone: 10-21-2021 12:45-0400 SaO2% (BldA) [Mass fraction] 98 % [facility] Work Phone: 10-21-2021 12:45-0400 Systolic blood pressure 102 mm[Hg] [facility] Work Phone: 08-26-2019 08:08-0400 BMI (Body Mass Index) 19.22 kg/m2 Cherelle [facility] 08-26-2019 08:08-0400 Body Temperature 97.81 [degF] Cherelle [facility] 08-26-2019 08:08-0400 Body weight 54.43 kg Cherelle [facility] 08-26-2019 08:08-0400 BP Diastolic 79 mm[Hg] [facility] 08-26-2019 08:08-0400 BP Systolic 118 mm[Hg] Cherelle [facility] 08-26-2019 08:08-0400 Height 168.3 cm Cherelle [facility] 08-26-2019 08:08-0400 Pulse (Heart Rate) 110 /min Cherelle [facility] 08-26-2019 08:08-0400 Pulse Oximetry 97 % Cherelle [facility] 08-26-2019 08:08-0400 Respiratory Rate 14 /min [facility] 01-19-[facility] 16:39-0500 Body Temperature 100.6 [degF] Zohra [facility] 01-19-2019 15:30-0500 BMI (Body Mass Index) 19.37 kg/m2 Zohra [facility] 01-19-2019 15:30-0500 Body weight 54.43 kg Zohra Francisco [facility] 01-19-2019 15:30-0500 BP Diastolic 70 mm[Hg] Zohra Francisco [facility] 01-19-2019 15:30-0500 BP Systolic 115 mm[Hg] Zohra Francisco [facility] 01-19-2019 15:30-0500 Height 167.6 cm Zohra Francisco [facility] 01-19-2019 15:30-0500 Pulse (Heart Rate) 96 /min Zohra [facility] 01-19-2019 15:30-0500 Pulse Oximetry 100 % Zohra Courtney [facility] 01-19-2019 15:30-0500 Respiratory Rate 16 /min Zohra Courtney [facility] 12-13-2018 09:45-0500 BMI (Body Mass Index) 19.37 kg/m2 Lisedamian Mazariegos [facility] 12-13-2018 09:45-0500 Body Temperature 98.6 [degF] [facility] 12-13-2018 09:45-0500 Body weight 54.43 kg [facility] 12-13-2018 09:45-0500 BP Diastolic 72 mm[Hg] [facility] 12-13-2018 09:45-0500 BP Systolic 136 mm[Hg] [facility] 12-13-2018 09:45-0500 Height 167.6 cm [facility] 12-13-2018 09:45-0500 Pulse (Heart Rate) 98 /min [facility] 12-13-2018 09:45-0500 Pulse Oximetry 97 % [facility] 12-13-2018 09:45-0500 Respiratory Rate 16 /min [facility] 12-07-2018 21:37-0400 BP Diastolic 60 mm[Hg] [facility] 12-07-2018 21:37-0400 BP Systolic 103 mm[Hg] [facility] 12-07-2018 21:37-0400 Pulse (Heart Rate) 73 /min [facility] 12-07-2018 21:37-0400 Pulse Oximetry 99 % [facility] 12-07-2018 21:37-0400 Respiratory Rate 14 /min [facility] 12-07-2018 18:50-0400 BMI (Body Mass Index) 19.37 kg/m2 [facility] 12-07-2018 18:50-0400 Body Temperature 99.3 [degF] [facility] 12-07-2018 18:50-0400 Body weight 54.43 kg [facility] 12-07-2018 18:50-0400 Height 167.6 cm [facility] 11-24-2018 23:01-0400 Body Temperature 98.01 [degF] [facility] 11-24-2018 23:01-0400 Body weight 54.43 kg [facility] 11-24-2018 23:01-0400 BP Diastolic 66 mm[Hg] [facility] 11-24-2018 23:01-0400 BP Systolic 123 mm[Hg] [facility] 11-24-2018 23:01-0400 Pulse (Heart Rate) 58 /min [facility] 11-24-2018 23:01-0400 Pulse Oximetry 100 % [facility] 11-24-2018 23:01-0400 Respiratory Rate 18 /min [facility] 11-19-2018 19:01-0400 Body Temperature 100.09 [degF] Aiden Noe [facility] 11-19-2018 19:01-0400 Body weight 57.61 kg Aiden Noe [facility] 11-19-2018 19:01-0400 BP Diastolic 71 mm[Hg] Aiden Noe [facility] 11-19-2018 19:01-0400 BP Systolic 148 mm[Hg] Aiden Noe [facility] 11-19-2018 19:01-0400 Pulse (Heart Rate) 96 /min Aiden Noe [facility] 11-19-2018 19:01-0400 Pulse Oximetry 97 % Aiden Noe [facility] 11-19-2018 19:01-0400 Respiratory Rate 16 /min Aiden Noe [facility] Encounters Encounter Date Encounter Type Care Provider Facility Start: 11-07-2021 End: 11-07-2021 Emergency department patient visit Mayur White Facility:[facility] Start: 11-07-2021 End: 11-07-2021 Emergency department patient visit [facility] Start: 10-21-2021 End: 10-21-2021 Emergency department patient visit No Primary Care Physician Facility:[facility] Start: 10-21-2021 End: 10-21-2021 Emergency department patient visit [facility] Start: 09-02-2019 End: 09-02-2019 Documentation procedure Dayanna Huff [facility] Start: 08-26-2019 End: 08-30-2019 Patient encounter procedure CHERELLE LOZA [facility] Start: 08-26-2019 End: 08-26-2019 Patient encounter procedure CHERELLE LOZA [facility] Start: 08-26-2019 End: 08-26-2019 Office outpatient new 30 minutes Cherelle Loza Work Phone: [facility] Comment on above: Vaginal discharge (P rimary Dx); Urinary frequency Start: 01-19-2019 End: 01-19-2019 Emergency department patient visit PHYSICIAN NO [facility] Start: 01-19-2019 End: 01-19-2019 Emergency department patient visit Zohra Joann Courtney Work Phone: [facility] Emergency Department Comment on above: Influenza B (Primary Dx) Start: 12-13-2018 End: 12-13-2018 Emergency department patient visit PHYSICIAN NO [facility] Start: 12-13-2018 End: 12-13-2018 Emergency department patient visit Lise Mazariegos Work Phone: [facility] Emergency Department Comment on above: Allergic urticaria ( Primary Dx) Start: 12-07-2018 End: 12-07-2018 Emergency department patient visit PHYSICIAN NO [facility] Start: 12-07-2018 End: 12-07-2018 Emergency department patient visit Norma Newton Work Phone: [facility] Emergency Department Comment on above: Chest pain, unspecif ied type (Primary Dx); Shortness of breath; Anemia, unspecified type; Hypokalemia Start: 11-24-2018 End: 11-25-2018 Emergency department patient visit Princess Adkins Work Phone: [facility] Emergency Department Comment on above: Cough (Primary Dx); Chest pain, unspecified type; Anemia, unspecified type Start: 11-19-2018 End: 11-19-2018 Emergency department patient visit AIDEN NOE [facility] Start: 11-19-2018 End: 11-19-2018 Emergency department patient visit Aiden Noe Work Phone: [facility] Emergency Department Comment on above: Community acquired p neumonia of right lower lobe of lung (HCC) (Primary Dx) Procedures Date Procedure Procedure Detail Performing Clinician Start: 11-07-2021 X-ray of lumbar spine, two or three views Start: 10-21-2021 Plain chest X-ray Start: 08-26-2019 Urinalysis Cherelle Loza Work Phone: Start: 08-26-2019 Adult depression screening assessment Cherelle Loza Start: 01-19-2019 Standard chest X-ray Mary oneal Work Phone: Start: 01-19-2019 Influenza virus A AND B antigen assay Mary Beard Work Phone: Start: 12-08-2018 Electrocardiogram Provider Not In Syst em Start: 12-07-2018 Basic metabolic 1998 panel - Serum or Plasma Norma Newton Work Phone: Start: 12-07-2018 Complete blood count with white cell differential, automated Norma Newton Work Phone: Start: 12-07-2018 Complete blood count with white cell differential, manual Norma Newton Work Phone: Start: 12-07-2018 Natriuretic peptide.B prohormone N-Terminal [Mass/volume] in Serum or Plasma Norma Newton Work Phone: Start: 12-07-2018 Troponin measurement Norma zimmerman Work Phone: Start: 12-07-2018 12 lead ECG Chantel North Work Phone: Start: 12-07-2018 Standard chest X-ray Chantel North Work Phone: Start: 11-25-2018 Choriogonadotropin ( test) [Presence] in Urine Gaye Padronzelda Marshall Work Phone: Start: 11-25-2018 Basic metabolic 2000 panel - Serum or Plasma Princess Adkins Work Phone: Start: 11-25-2018 Complete blood count with white cell differential, automated Princess Adkins Work Phone: Start: 11-25-2018 Complete blood count with white cell differential, manual Princess Adkins Work Phone: Start: 11-25-2018 D-dimer assay, quantitative Princess Adkins Work Phone: Start: 11-25-2018 Manual Differential panel - Blood Princess Adkins Work Phone: Start: 11-25-2018 Red blood cell morphology Princess moreno Work Phone: Start: 11-25-2018 Troponin measurement Princess marcelino Work Phone: Start: 11-25-2018 12 lead ECG Gaye Padronzelda PalmerLefors Work Phone: Start: 11-25-2018 Standard chest X-ray Gaye Monte Lefors Work Phone: Start: 11-19-2018 Standard chest X-ray Radha Elena Work Phone: Plan of Treatment Date Care Activity Detail Author Start: 10-21-2021 [facility] Work Phone: Start: 08-25-2020 Depression screening using PHQ-9 (Patient Health Questionnaire 9) score Depression Screening (PHQ9) [facility] Start: 10-11-2019 Influenza vaccinatio n given Sequential Influenza Vaccine (#1) [facility] Start: 09-13-2019 End: 09-13-2019 Office Visit 09/13/2019 Office Visit Primary Care Cherelle Loza, RESIDENTIAL BUILDER [address] [facility] [address] [place] [address] [phone] [facility] Start: 12-27-2018 End: 12-27-2018 Office Visit 12/27/2018 Office Visit Primary Care Domingo Rubio, DO [address] [facility] [address] [place] [address] [phone] [facility] Start: 10-10-2018 Influenza vaccinatio n given SEQUENTIAL INFLUENZA VACCINE (#1) [facility] Start: 10-05-2009 Hepatitis C antibody , confirmatory test Hepatitis C Screening [facility] Start: 10-05-2006 HIV screening HIV Screening [facility] Start: 10-05-1994 History and physical examination, annual for health maintenance Wellness Visit [facility] Start: 1990 Depression screening using PHQ-9 (Patient Health Questionnaire 9) score DEPRESSION SCREENING (PHQ9) [facility] Start: 1990 Screening for malign ant neoplasm of cervix PAP SMEAR [facility] Start: 1990 [facility] End: 08-25-2020 Chlamydia trachomatis rRNA assay Chlamydia/GC/Trichomona s Amplified RNA Microbiology Routine Vaginal discharge 1 Occurrences starting 08/26/2019 until 08/25/2020 [facility] Comment on above: 1 Occurrences starti ng 08/26/2019 until 08/25/2020 End: 08-25-2020 Gardnerella vaginalis rRNA assay Vaginitis DNA Probes Microbiology Routine Vaginal discharge 1 Occurrences starting 08/26/2019 until 08/25/2020 [facility] Comment on above: 1 Occurrences starti ng 08/26/2019 until 08/25/2020 HCG ( test) Ql (U) POC Urine Point of Care Testing [facility] 12/07/2018 8:28 PM EDT [facility] Neisseria gonorrhoea e nucleic acid detection Chlamydia/Gonorrhoeae Amplified RNA Microbiology Routine Vaginal discharge Ordered: 08/26/2019 [facility] Comment on above: Ordered: 08/26/2019 Patient Education [facility] Work Phone: Patient referral [facility] Work Phone: Trichomonas vaginali s Amplified RNA Trichomonas vaginalis Amplified RNA Microbiology Routine Vaginal discharge Ordered: 08/26/2019 [facility] Comment on above: Ordered: 08/26/2019 Payers Date Payer Category Payer Self-pay 2019 Medicaid [id number] 2019 Medicaid [employer] MED[employer] xxxxxxxxxxx 2019-Present xxxxxxxxxxx [id number] 2018 Medicaid [facility] MANAGED [facility] MEDICAID COMMUNITY PLAN xxxxxxxxx 2018-Present xxxxxxxxx [id number] 2018 Medicaid [id number] 1990 Unknown [id number] 1990 Unknown [id number] 1990 Unknown [id number] 1990 Unknown [id number] 1990 Unknown [id number] 1990 Unknown [id number] 1990 Unknown [id number] Unknown [employer] 0 [id number] Unknown [id number] Unknown [id number] Social History Date Type Detail Facility Start: 11-19-2018 End: 12-13-2018 Tobacco smoking status NHIS Current every day smoker [facility] Start: 11-19-2018 End: 12-13-2018 Alcohol intake Lifetime non-drinker (finding) [facility] Start: 11-19-2018 History SDOH Alcohol Frequency 1 [facility] Sex Assigned At Not on file [facility] History of tobacco use Cigar Smoker [facility] Exposure to SARS-CoV -2 (event) Not sure [facility] Start: 10-21-2021 End: 11-07-2021 Tobacco smoking status [facility] Unknown if ever smoked [facility] Work Phone: Start: 1990 End: 1990 Sex Assigned At Female [facility] Work Phone: Evaluation note Note Date & Type Note Facility Evaluation note No assessment information availa ble [facility] Work Phone: Discharge Instructions * Attachments The following attachments cannot be sent through Care Everywhere. * Pneumonia (Wallisian) documented in this encounter* Attachments The following attachments cannot be sent through Care Everywhere. * Chest Pain (Wallisian) * Cough (Wallisian) * Anemia (Wallisian) documented in this encounter* Attachments The following attachments cannot be sent through Care Everywhere. * Anemia (Wallisian) * Anemia: Heavy Bleeding (Wallisian) * Chest Pain (Wallisian) * Hypokalemia (Wallisian) * SOB (Shortness of Breath) (Wallisian) documented in this encounter* Attachments The following attachments cannot be sent through Care Everywhere. * Influenza (Wallisian) documented in this encounter* Instructions* Lise Mazariegos MD - 12/13/2018 As directed follow-up with your primary care physician for the treatment and evaluation or you can go to the allergy referral provided. * Attachments The following attachments cannot be sent through Care Everywhere. * Urticaria (Wallisian) documented in this encounter Assessments Diagnosis Community acquired pneumonia of right lower lobe of lung (HCC)- Primary Diagnosis Cough- Primary Chest pain, unspecified type Anemia, unspecified type Diagnosis Chest pain, unspecified type- Primary Shortness of breath Anemia, unspecified type Hypokalemia Hypopotassemia Diagnosis Influenza B Influenza with other respiratory manifestations Diagnosis Vaginal discharge Leukorrhea, not specified as infective Urinary frequency Diagnosis Allergic urticaria- Primary Advance Directives No Advanced Directives Records FoundDocuments on File Type Date Recorded 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 Advance Directives and Livin g Will 11/19/2018 7:46 PM Documents on File Type Date Recorded 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 Advance Directives and Livin g Will 11/24/2018 11:09 PM Documents on File Type Date Recorded 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 Advance Directives and Livin g Will 12/07/2018 11:09 PM Documents on File Type Date Recorded 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 Advance Directives and Livin g Will 01/19/2019 9:56 AM Documents on File Type Date Recorded 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 Advance Directives and Livin g Will 12/13/2018 9:56 AM Advance Directive Response Recorded Date/ Time Living Will No October 21, 2021 1:24pm Power of Remote Sensing Analyst No October 1:24pm Advance Directive Response Recorded Date/ Time Living Will No November 07, 2021 1:50pm Power of Remote Sensing Analyst No October 1:50pm Summary Purpose Family History No Family History Records FoundNo Family History Records FoundNo Family History Records FoundNo Family History Records Found History of Present Illness * Cherelle Loza, RESIDENTIAL BUILDER - 08/26/2019 8:14 AM EDT Pipe was seen today for [facility]. Diagnoses and all orders for this visit: Vaginal discharge Comments: Pelvic exam performed and based on ROS and exam, likely yeast infection. Start miconazole cream daily since going out of town. Will tx further based on results. Orders: - Chlamydia/GC/Trichomonas Amplified RNA; Future - Vaginitis DNA Probes; Future - miconazole (Miconazole 7) 2 % vaginal cream; Insert 1 applicator into the vagina nightly for 7 days . - Vaginitis DNA Probes - Chlamydia/GC/Trichomonas Amplified RNA - Chlamydia/Gonorrhoeae Amplified RNA - Trichomonas vaginalis Amplified RNA Urinary frequency Comments: Urinalysis ordered. Orders: - Urinalysis Patient ID: Pipe Gomez is a 28 y.o. female. HPI Pipe Gomez is a 28 year old female patient who presents today to [facility] and would like Vaginal discharge: She reports some vaginal itching and mild discharge approximately 2 days ago with some mild pelvic discomfort one days ago. She has not had any abnormal vaginal bleed. She does reports some urinary frequency, but no painful urination. Denies fever or chills. She has an IUD in place, for the past 2 years, [place], so she will need a new OBGYN for this eventually. She is sexually active in a monogamous relationship. The following portions of the patient's history were reviewed and updated as appropriate: allergies, current medications, past medical history, past surgical history and problem list. Review of Systems Constitutional: Negative for chills, fatigue, fever and unexpected weight change. HENT: Negative. Respiratory: Negative for cough, chest tightness, shortness of breath and wheezing. Cardiovascular: Negative for chest pain, palpitations and leg swelling. Gastrointestinal: Negative for constipation, diarrhea, nausea and vomiting. Genitourinary: Positive for frequency, pelvic pain and vaginal discharge. Negative for difficulty urinating, dysuria, vaginal bleeding and vaginal pain (vaginal itching). Musculoskeletal: Negative. Skin: Negative for color change, rash and wound. Neurological: Negative for dizziness, light-headedness and numbness. Psychiatric/Behavioral: Negative. Objective PACU Vitals 08/26/19 0808 BP: 118/79 Pulse: (!) 110 Resp: 14 Temp: 97.8 F (36.6 C) SpO2: 97% Physical Exam Vitals signs and nursing note reviewed. Exam conducted with a ladies underwear operator present. Constitutional: General: She is not in acute distress. Appearance: Normal appearance. She is not ill-appearing. HENT: Head: Normocephalic and atraumatic. Right Ear: External ear normal. Left Ear: External ear normal. Nose: Nose normal. Mouth/Throat: Mouth: Mucous membranes are moist. Pharynx: Oropharynx is clear. Eyes: Conjunctiva/sclera: Conjunctivae normal. Pupils: Pupils are equal, round, and reactive to light. Neck: Musculoskeletal: Normal range of motion and neck supple. Cardiovascular: Rate and Rhythm: Normal rate and regular rhythm. Heart sounds: Normal heart sounds. No murmur. Pulmonary: Effort: Pulmonary effort is normal. No respiratory distress. Breath sounds: Normal breath sounds. No wheezing or rales. Abdominal: General: Bowel sounds are normal. Palpations: Abdomen is soft. Genitourinary: General: Normal vulva. Exam position: Lithotomy position. Labia: Right: No rash, tenderness, lesion or injury. Left: No rash, tenderness, lesion or injury. Vagina: No signs of injury and foreign body. Vaginal discharge (small amount of curdlike white discharge) present. No erythema, tenderness, bleeding, lesions or prolapsed vaginal muse. Cervix: Normal. Uterus: Normal. Adnexa: Right adnexa normal and left adnexa normal. Comments: IUD string noted on exam Musculoskeletal: Normal range of motion. Skin: General: Skin is warm and dry. Capillary Refill: Capillary refill takes less than 2 seconds. Neurological: General: No focal deficit present. Mental Status: She is alert and oriented to person, place, and time. Psychiatric: Mood and Affect: Mood normal. Behavior: Behavior normal. * Cherelle Loza CNP - 08/26/2019 8:14 AM EDT Depression Screening 08/26/2019 Little interest or pleasure in doing things 0 Feeling down, depressed, or hopeless 0 PHQ-2 Total Score 0 Trouble falling or staying asleep, or sleeping too much 0 Feeling tired or having little energy 0 Poor appetite or overeating 0 Feeling bad about yourself - or that you are a failure or have let yourself or your family down 0 Trouble concentrating on things, such as reading the newspaper or watching television 0 Moving or speaking so slowly that other people could have noticed. Or the opposite - being so fidgety or restless that you have been moving around a lot more than usual 0 Thoughts that you would be better off , or of hurting yourself in some way 0 PHQ-9 Total Score 0 If you checked off any problems, how difficult have these problems made it for you to do your work,take care of things at home, or get along with other people? Not difficult at all documented in this encounter* Dayanna Huff MA - 09/02/2019 11:16 AM EDT Pt called back, given results. Suggest increase water intake and drink cranberry juice. Pt has no sx of UTI documented in this encounter Chief Complaint and Reason for Visit Chief Complaint COUGH Chief Complaint COUGH back Additional Source Comments Reason for Visit (unrecogniz ed section and content) Reason Comments Cough Chest Pain pleuritic Reason Comments Chest Pain Nausea Reason Comments Cough Chest Pain Reason Comments Fever Reason Comments Establish Care new patient, wants a PAP smear, may have a yeast infection, also would like an STD check. Reason Comments Urticaria Radha Elena PA-C - 11/19/2018 7:55 PM EDTBKyle diaz RN - 11/19/2018 7:01 PM Gaye Sprague PA-C - 11/24/2018 11:15 PM Ani Gutiérrez RN - 11/24/2018 11:02 PM EDT ED Notes (unrecognized secti on and content) ED PROVIDER NOTE [facility] EMERGENCY DEPARTMENT NAME: Pipe Gomez AGE: 28 y.o. : 1990 VISIT DATE: 11/19/2018 CSN: [id number] PCP: Physician No Chief Complaint Patient presents with Cough Chest Pain pleuritic Patient presents for evaluation of depression cough is been present for the past week. Patient states that she is also developed body aches, fevers and chills during this time. Has taken Tylenol and ibuprofen without relief of symptoms. Over the past day developed pain and a burning sensation in the right side of her chest. This worsen she is times that she does cough. Patient denies any hemoptysis. Denies any abdominal pain, posttussive emesis or vomiting. Patient denies any leg pain or swelling. No known sick exposures at home with similar symptoms. History reviewed. No pertinent past medical history. History reviewed. No pertinent surgical history. History reviewed. No pertinent family history. Social History Socioeconomic History Marital status: Single Spouse name: Not on file Number of children: Not on file Years of education: Not on file Highest education level: Not on file Occupational History Not on file Social Needs Financial resource strain: Not on file Food insecurity: Worry: Not on file Inability: Not on file Transportation needs: Medical: Not on file Non-medical: Not on file Tobacco Use Smoking status: Current Every Day Smoker Packs/day: 0.00 Smokeless tobacco: Never Used Substance and Sexual Activity Alcohol use: Never Frequency: Never Drug use: Never Sexual activity: Not on file Lifestyle Physical activity: Days per week: Not on file Minutes per session: Not on file Stress: Not on file Relationships Social connections: Talks on phone: Not on file Gets together: Not on file Attends adventism service: Not on file Active member of club or organization: Not on file Attends meetings of clubs or organizations: Not on file Relationship status: Not on file Other Topics Concern Not on file Social History Narrative Not on file No current outpatient medications on file prior to encounter. Allergies Allergen Reactions Penicillins Hives Review of Systems Constitutional: Negative for chills and fever. HENT: Negative for drooling and voice change. Eyes: Negative for discharge and visual disturbance. Respiratory: Positive for cough. Negative for shortness of breath. Cardiovascular: Positive for chest pain. Gastrointestinal: Negative for abdominal pain and vomiting. Endocrine: Negative for polydipsia and polyuria. Genitourinary: Negative for dysuria and hematuria. Musculoskeletal: Negative for gait problem. Skin: Negative for color change and rash. Allergic/Immunologic: Negative for immunocompromised state. Neurological: Negative for numbness and headaches. Psychiatric/Behavioral: Negative for behavioral problems and confusion. All other systems reviewed and are negative. Patient Vitals for the past 24 hrs: BP Temp Temp src Pulse Resp SpO2 Weight 11/19/18 1901 (!) 148/71 100.1 F (37.8 C) Oral 96 16 97 % 57.6 kg (127 lb) Physical Exam Vitals signs and nursing note reviewed. Constitutional: General: She is not in acute distress. Appearance: She is well-developed. She is not ill-appearing, toxic-appearing or diaphoretic. HENT: Head: Normocephalic and atraumatic. Nose: Nose normal. Eyes: Conjunctiva/sclera: Conjunctivae normal. Neck: Musculoskeletal: Neck supple. Cardiovascular: Rate and Rhythm: Normal rate and regular rhythm. Heart sounds: Normal heart sounds. Pulmonary: Effort: Pulmonary effort is normal. No respiratory distress. Breath sounds: No stridor. Examination of the right-lower field reveals decreased breath sounds. Decreased breath sounds present. Chest: Chest wall: Tenderness present. Abdominal: General: There is no distension. Palpations: Abdomen is soft. Skin: General: Skin is warm and dry. Neurological: Mental Status: She is alert and oriented to person, place, and time. Psychiatric: Behavior: Behavior normal. Laboratory & Radiographic Imaging (if done): No results found for this visit on 11/19/18. XR Chest AP/PA and LAT Final Result Right lower lobe pneumonia. Workstation ID: [id number] Procedures MDM Presents for evaluation of cough and right-sided chest discomfort that has been increasing since onset nearly week ago. VS were reviewed and showed BP (!) 148/71 (BP Location: Right arm, Patient Position: Sitting) Pulse 96 Temp 100.1 F (37.8 C) (Oral) Resp 16 Wt 57.6 kg (127 lb) LMP 11/19/2018 SpO2 97% . Obtained and reviewed CXR, which showed At this time, it is felt that the most likely explanation for the patient's symptoms is pneumonia. Patient was provided toradol while in the ED. Supportive treatment options were discussed. Patient to follow up with PCP closely. Impression: Community acquired pneumonia Plan: Discharge from ED. Prescribed zithromax and hycodan Advised Pt on supportive measures, including smoking cessation and avoidance of second-hand smoke, OTC acetaminophen or ibuprofen for fever and body aches, advancement of fluids as tolerated, rest, and frequent hand-washing w/ soap and water. Instructed Pt to f/up w/ PCP w/in 3 days. Instructed Pt to monitor for shaking chills or T>100.5degF, persistent cough >7- 10d, hemoptysis, delirium or confusion, cyanosis, and respiratory distress. Instructed Pt to f/up w/ PCP or ETC should Sx worsen or not improve. The patient has been informed that they may have pre-hypertension or hypertension based on a blood pressure reading in the Emergency Department. I recommend that the patient call the primary care provider listed on their discharge instructions or a physician of their choice as soon as possible to arrange follow-up in the next 4 weeks for further evaluation of possible pre-hypertension or hypertension. . Clinical Impression: 1. Community acquired pneumonia of right lower lobe of lung (HCC) ED Disposition ED Disposition Condition Comment Discharge Stable Pipe Gomez discharged to home/self care in stable condition. Follow-up Information 1. Physician Referral Service. Contact information for after-discharge care Follow-up information has not been specified. New Prescriptions azithromycin (ZITHROMAX) 250 MG tablet jeanine . HYDROcodone-homatropine (HYCODAN) 5-1.5 mg/5 mL (5 mL) syrup Take 5 mL by mouth every 6 (six) hours as needed for cough . Radha Elena PA-C 11/19/182022 Patient reporting severe body aches chest soreness with cough and inspiration, patient's cough is non productive documented in this encounter ED PROVIDER NOTE [facility] EMERGENCY DEPARTMENT NAME: Pipe Gomez AGE: 28 y.o. : 1990 VISIT DATE: 11/24/2018 CSN: [id number] PCP: Physician No Chief Complaint Patient presents with Chest Pain Nausea HPI Pipe Gomez is a 28 y.o. female that has no past medical history on file.. This is a 28-year-old female who presents for midsternal left-sided chest discomfort. The patient presents emergency department today complaining of midsternal left- sided chest discomfort, reporting that has been present for about 2 days now. The patient that the pain is constant. Aggravated by moving, coughing, occasionally by breathing. She actually seen about a week ago, diagnosed with a right lower lobe pneumonia. She states that the pain feels similar to when she had pain on the right side, but, she reports that now is left-sided and her right-sided pain is dissipated. She reports a cough associate with her pneumonia and seem to down as well she is taking her medication. She is not having any fevers. She states that sometimes she will feel shortness of breath but no specific exertional dyspnea orthopnea. No shortness of breath on exam. She does not have hypertension, hyperlipidemia, diabetes,. She denies any recent travel, surgery, mobilization, hospitalization, unilateral edema, history of DVT/PE. No exogenous estrogen use, uses the ParaGard IUD. Patient states that she has not noted any hemoptysis. States that she feels a little bit like she has some nausea, upset stomach, and she feels like she is getting some sour stomach but no significant abdominal pain. NO vomiting or diarrhea. History reviewed. No pertinent past medical history. History reviewed. No pertinent surgical history. History reviewed. No pertinent family history. Social History Socioeconomic History Marital status: Single Spouse name: Not on file Number of children: Not on file Years of education: Not on file Highest education level: Not on file Occupational History Not on file Social Needs Financial resource strain: Not on file Food insecurity: Worry: Not on file Inability: Not on file Transportation needs: Medical: Not on file Non-medical: Not on file Tobacco Use Smoking status: Current Every Day Smoker Packs/day: 0.00 Smokeless tobacco: Never Used Substance and Sexual Activity Alcohol use: Never Frequency: Never Drug use: Never Sexual activity: Not on file Lifestyle Physical activity: Days per week: Not on file Minutes per session: Not on file Stress: Not on file Relationships Social connections: Talks on phone: Not on file Gets together: Not on file Attends adventism service: Not on file Active member of club or organization: Not on file Attends meetings of clubs or organizations: Not on file Relationship status: Not on file Other Topics Concern Not on file Social History Narrative Not on file Previous Medications Medication Sig azithromycin (ZITHROMAX) 250 MG tablet zpack . HYDROcodone-homatropine (HYCODAN) 5-1.5 mg/5 mL (5 mL) syrup Take 5 mL by mouth every 6 (six) hours as needed for cough . Allergies Allergen Reactions Penicillins Hives Review of Systems CONSTITUTIONAL: No unexpected weight loss SKIN: No new hair loss EYE: no diplopia ENT: No tinnitus GENITOURINARY: No swelling of genitals GASTROINTESTINAL: No new encopresis ENDOCRINE: No excessive sweating NEUROLOGIC: No new unilateral weakness PSYCHIATRIC: No hallucinations HEMATOLOGIC/LYMPH: No unusual bruising ALLERGIC/IMMUNOLOGIC: No new reported HIV exposure. Patient Vitals for the past 24 hrs: BP Temp Temp src Pulse Resp SpO2 Weight 11/24/18 2301 123/66 98 F (36.7 C) Oral (!) 58 18 100 % 54.4 kg (120 lb) Physical Exam Vitals signs and nursing note reviewed. Constitutional: Appearance: Normal appearance. She is well-developed. HENT: Head: Normocephalic and atraumatic. Right Ear: External ear normal. Left Ear: External ear normal. Eyes: Pupils: Pupils are equal, round, and reactive to light. Neck: Musculoskeletal: Normal range of motion and neck supple. Cardiovascular: Rate and Rhythm: Normal rate and regular rhythm. Heart sounds: Normal heart sounds. No murmur. No friction rub. No gallop. Pulmonary: Effort: Pulmonary effort is normal. No respiratory distress. Breath sounds: Normal breath sounds. No decreased breath sounds, wheezing, rhonchi or rales. Chest: Comments: Chest wall tenderness palpation. Abdominal: General: Bowel sounds are normal. There is no distension. Palpations: Abdomen is soft. Abdomen is not rigid. Tenderness: There is no tenderness. There is no guarding or rebound. Negative signs include Lagunas's sign and McBurney's sign. Comments: No abdominal tenderness. Skin: General: Skin is warm and dry. Neurological: Mental Status: She is alert and oriented to person, place, and time. GCS: GCS eye subscore is 4. GCS verbal subscore is 5. GCS motor subscore is 6. Laboratory & Radiographic Imaging (if done): Results for orders placed or performed during the hospital encounter of 11/24/18 BMP Result Value Ref Range Sodium 140 135 - 145 mmol/L Potassium 4.0 3.5 - 5.1 mmol/L Chloride 102 98 - 108 mmol/L Bicarbonate 28 21 - 32 mmol/L Anion Gap 14 10 - 20 mmol/L Glucose 112 (H) 65 - 99 mg/dL BUN 12 8 - 25 mg/dL Creatinine 0.70 0.40 - 1.10 mg/dL eGFR 137 >=60 mL/min/1.73 m2 BUN/Creatinine Ratio 17.1 10.0 - 20.0 Calcium 8.7 8.4 - 10.2 mg/dL Troponin Result Value Ref Range Troponin T <6 <=14 ng/L Troponin T Interpretation Normal D-Dimer, Quantitative Result Value Ref Range D-Dimer 0.46 0.27 - 0.49 mcg/mL FEU CBC Auto Differential Result Value Ref Range WBC 4.13 (L) 4.50 - 11.00 K/mcL RBC 4.11 4.00 - 5.20 M/mcL Hemoglobin 8.0 (L) 12.0 - 16.0 g/dL Hematocrit 28.5 (L) 36.0 - 46.0 % MCV 69.3 (L) 80.0 - 100.0 fL MCH 19.5 (L) 26.0 - 34.0 pg MCHC 28.1 (L) 31.0 - 37.0 g/dL Platelets 334 150 - 400 K/mcL RDW - CV 17.7 (H) 11.6 - 14.8 % MPV 10.1 9.0 - 15.5 fL Nucleated RBC 0.0 % Nucleated RBC Abs 0.00 0.00 - 0.00 K/mcL CBC and Diff Morphology Result Value Ref Range Platelet Estimate Normal Normal Platelets Large Few Anisocytosis 1+ Microcytosis 2+ Hypochromia 3+ Polychromia 1+ Ovalocytes 1+ Spherocytes Few Toxic Granulation Rare Manual Differential Result Value Ref Range Neutrophils 18.0 % Lymphocytes 69.0 % Monocytes 6.0 % Eosinophils 3.0 % Basophils 3.0 % Metamyelocytes 1.0 % Neutrophils Abs 0.78 (L) 1.70 - 7.00 K/mcL Lymphocytes Abs 2.85 0.90 - 4.00 K/mcL Monocytes Abs 0.25 (L) 0.30 - 0.90 K/mcL Eosinophils Abs 0.12 0.00 - 0.50 K/mcL Basophils Abs 0.12 0.00 - 0.30 K/mcL XR Chest AP/PA and LAT Final Result Improved aeration of the right lung base compared to the previous exam of 11/19/2018. Workstation ID: [id number] JAY Procedures MDM This is a 28-year-old female who presents emergency department today with complaint of cough, chest discomfort. Patient states that she has been having discomfort in the midst of her left side of her chest since yesterday. Pain is aggravated by cough, movement, breathing. She is PE RC negative. She has no cardiac risk factors. On exam, she is well-appearing, nontoxic, she is reproducible tenderness palpation on her midsternum of her chest as well as some extending on the left anterior lower ribs underneath the left breast. No tenderness in the abdomen. She is reporting occasional upset stomach, test was obtained but she had no abdominal pain. No diarrhea. Patient's lab work as noted above is reassuring. D-dimer negative, troponin negative. BMP with normal creatinine. Chest x-ray showing improved aeration of the right lung base compared to previous exam of 11/19/2018. The patient does have non-specific EKG changes and given her presentation we think this could represent pericarditis we will treat her for pericarditis with Indocin, per recommendation of Dr. Adkins. Indocin 25mg TID x 7 days The patient also had a hemoglobin of 8. Actually discussed with the patient, as I asked that she is ever been told she was anemic. 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 The patient states that she has been told that she has anemia in the past she is unsure what her normal number is. She is not currently taking any multivitamin or iron supplementation. She does get heavy menstrual cycles that she is on the ParaGard, copper IUD. Not currently on her menstrual cycle. Recommend she follow-up with her PCP about this, she may need be started on iron, multivitamin. Will discharge home on Indocin. Patient discharged home, understand return precautions ED and outpatient follow-up peer ED Course as of Nov 25 50 Mari Nov 25, 2018 0006 D-Dimer: 0.46 [ED] ED Course User Index [ED] Gaye Marshall PA-C Clinical Impression: 1. Cough 2. Chest pain, unspecified type 3. Anemia, unspecified type ED Disposition None Follow-up Information 1. [facility] Emergency Department. Specialty: Emergency Medicine Why: If symptoms worsen [address] [facility] [id number] Contact information for after-discharge care Follow-up information has not been specified. The patient has been informed that they may have pre-hypertension or hypertension based on a blood pressure reading in the Emergency Department. I recommend that the patient call the primary care provider listed on their discharge instructions or a physician of their choice as soon as possible to arrange follow-up in the next 4 weeks for further evaluation of possible pre-hypertension or hypertension. . New Prescriptions indomethacin (INDOCIN) 25 MG capsule Take 1 (one) capsule (25 mg total) by mouth 3 (three) times a day with meals for 7 days . Gaye Marshall PA-C 11/25/1850 Bed: 13 Expected date: Expected time: Means of arrival: Comments: 1 Patient was treated for pneumonia 1 week ago, yesterday patient completed her antibiotic course patient says that for her diagnosis she had right sided pain in her lower ribs, now it is on her left side patient also reporting a sour feeling in her stomach documented in this encounter PCP - Physician No [id number] Chief Complaint Patient presents with Cough Chest Pain HPI: Patient is a 28-year-old female returns to the emergency room today with complaints of feeling short of breath and having some chest pain. She was seen and evaluated in this emergency department 2 weeks ago and was diagnosed with pneumonia. At that time she was placed on Zithromax. She did finish the antibiotics. She states that she was then evaluated again in the ER 10 days ago and was diagnosed with pericarditis. She was placed on anti-inflammatories. States that she started feeling better until 2 days ago. States that 2 days ago she started having the pain in her chest with coughing and some shortness of breath again. She felt like her pneumonia is back. This is the same pain she had before. No nausea or vomiting. No hemoptysis. No peripheral edema. She is not on hormones. Review of Systems Review of Systems Constitutional: no fevers Skin: No rash Eyes: No discharge ENMT: No hemoptysis Genitourinary: no obstructive symptoms Endocrine: no polyuria Neurologic: no new numbness Psychiatric: No hallucinations Hematologic/Lymphatic: No abnormal bruising Allergic/Immunologic: no urticaria Other pertinent positives and negatives in HPI Past Medical History Reviewed History reviewed. No pertinent past medical history. Past Surgical History Reviewed History reviewed. No pertinent surgical history. Family History Reviewed and not pertinent History reviewed. No pertinent family history. Social History Reviewed Social History Socioeconomic History Marital status: Single Spouse name: Not on file Number of children: Not on file Years of education: Not on file Highest education level: Not on file Occupational History Not on file Social Needs Financial resource strain: Not on file Food insecurity: Worry: Not on file Inability: Not on file Transportation needs: Medical: Not on file Non-medical: Not on file Tobacco Use Smoking status: Current Every Day Smoker Packs/day: 0.00 Types: Cigars Smokeless tobacco: Never Used Substance and Sexual Activity Alcohol use: Never Frequency: Never Drug use: Never Sexual activity: Not on file Lifestyle Physical activity: Days per week: Not on file Minutes per session: Not on file Stress: Not on file Relationships Social connections: Talks on phone: Not on file Gets together: Not on file Attends adventism service: Not on file Active member of club or organization: Not on file Attends meetings of clubs or organizations: Not on file Relationship status: Not on file Other Topics Concern Not on file Social History Narrative Not on file Allergies Reviewed Allergies Allergen Reactions Penicillins Hives Medications Patient's Medications New Prescriptions PRENAT.VITS,BRE,FLL-[id number] TAB Take 1 tablet by mouth daily . Previous Medications AZITHROMYCIN (ZITHROMAX) 250 MG TABLET zpack . Modified Medications No medications on file Discontinued Medications No medications on file Physical Exam Initial Vital Signs BP 108/63 (BP Location: Right arm, Patient Position: Sitting) Pulse 73 Temp 99.3 F (37.4 C) (Oral) Resp 16 Ht 5' 6 Wt 54.4 kg (120 lb) LMP 11/11/2018 SpO2 100% BMI 19.37 kg/m Physical Exam Vitals signs and nursing note reviewed. Constitutional: Appearance: She is well-developed. HENT: Head: Normocephalic and atraumatic. Right Ear: Tympanic membrane normal. Left Ear: Tympanic membrane normal. Nose: Nose normal. Mouth/Throat: Mouth: Mucous membranes are moist. Eyes: Pupils: Pupils are equal, round, and reactive to light. Neck: Musculoskeletal: Normal range of motion and neck supple. Cardiovascular: Rate and Rhythm: Normal rate and regular rhythm. Pulmonary: Effort: Pulmonary effort is normal. No respiratory distress. Breath sounds: Normal breath sounds. Abdominal: General: Abdomen is flat. There is no distension. Palpations: Abdomen is soft. Musculoskeletal: Normal range of motion. Skin: General: Skin is warm and dry. Neurological: General: No focal deficit present. Mental Status: She is alert and oriented to person, place, and time. Psychiatric: Mood and Affect: Mood normal. MDM: Patient is a 28-year-old female presented to the ER today with complaints of chest pain. Patient had a similar symptoms in the past and was worried that she was probably having pneumonia again. She had chest x-ray here which showed a resolved pneumonia. EKG did not show signs of pericarditis as it did before. Her hemoglobin is still low as it has been but a little bit lower. Did talk at length with her about the need to maybe come back to the short stay unit to have this reevaluated or to even have a iron infusion. Patient states that she needs to get home and get her kids to bed and bought some iron and knows that she needs to take it. She feels that she can follow-up with her primary care physician. She will be discharged home but told to return with any worsening symptoms. Also talked with her about stopping smoking and risk factors with that as well. Procedures: Procedures Labs Reviewed CHEM 7 - Abnormal; Notable for the following components: Result Value Potassium 3.2 (*) All other components within normal limits Narrative: The eGFR should be used for monitoring renal function only and not for medication dosing. CBC WITH AUTO DIFFERENTIAL - Abnormal; Notable for the following components: WBC 4.45 (*) RBC 3.81 (*) Hemoglobin 7.6 (*) Hematocrit 26.7 (*) MCV 70.1 (*) MCH 19.9 (*) MCHC 28.5 (*) RDW - CV 18.6 (*) All other components within normal limits NT PRO BNP - Normal Narrative: Pride Study Cut-offs Rule In: < /= 50 Years >450 pg/mL 51 Years - 75 Years >900 pg/mL 76 Years - 99 Years >1800 pg/mL Rule Out: All patients <300 pg/mL POC , URINE - Normal CBC AND DIFFERENTIAL Narrative: The following orders were created for panel order CBC w/ Diff. Procedure Abnormality Status --------- ------ CBC Auto Differential[[id number]] Abnormal Final result Please view results for these tests on the individual orders. TROPONIN XR Chest AP/PA and LAT Final Result 1. No acute cardiopulmonary disease. Right lower lobe pneumonia has resolved. Workstation ID: [id number] Vital Signs During ED Visit (as charted by nursing) Patient Vitals for the past 24 hrs: BP Temp Temp src Pulse Resp SpO2 Height Weight 12/07/18 1850 108/63 99.3 F (37.4 C) Oral 73 16 100 % 5' 6 54.4 kg (120 lb) IMPRESSION: 1. Chest pain, unspecified type 2. Shortness of breath 3. Anemia, unspecified type 4. Hypokalemia This patient was independently seen and evaluated along with the Emergency Medicine Physician. All medical decision making was completed along with the physician. DAPHNE Cedeno PA-C 12/07/182126 Patient arrives to ED with c/o cough and sharp chest wall pains per x 2 days that worsened today. Patient was diagnosed with pneumonia on 11/19 here and was placed on ATB x 5 days and d/c. Patient was here on 11/24 and diagnosed with pericarditis and was out on anti-inflammatory. Patient arrives today stating she thinks pnemonia is coming back. documented in this encounter ED Provider Note PCP - Physician No Chief Complaint Patient presents with Fever HPI Patient presents for evaluation of fever, body aches, sore throat, dry cough over the past 48 hours. She states that it started very late in the evening day before yesterday and then worsened yesterday. She states that she still felt ill today and could not go to work so she came to the ED for evaluation. She denies any pain in her chest, nausea, vomiting, diarrhea, abdominal pain, any other associated symptoms. She denies getting the influenza vaccine this year. Review of Systems Constitutional: no significant weight changes Nose Throat: no recent voice changes, no tinnitus Eyes: no diplopia Cardiovascular: no recent abnormal swelling Respiratory: no hemoptysis GI: no recent difficulty swallowing MS: no new muscle weakness Neuro: no recent loss of coordination Endocrine: no new excessive hunger/thirst Heme: no new lymphadenopathy Integumentary: no new skin lesions Past Medical History History reviewed. No pertinent past medical history. Past Surgical History History reviewed. No pertinent surgical history. Family History History reviewed. No pertinent family history. Social History Social History Socioeconomic History Marital status: Single Spouse name: Not on file Number of children: Not on file Years of education: Not on file Highest education level: Not on file Occupational History Not on file Social Needs Financial resource strain: Not on file Food insecurity Worry: Not on file Inability: Not on file Transportation needs Medical: Not on file Non-medical: Not on file Tobacco Use Smoking status: Current Every Day Smoker Packs/day: 0.00 Types: Cigars Smokeless tobacco: Never Used Substance and Sexual Activity Alcohol use: Never Frequency: Never Drug use: Never Sexual activity: Not on file Lifestyle Physical activity Days per week: Not on file Minutes per session: Not on file Stress: Not on file Relationships Social connections Talks on phone: Not on file Gets together: Not on file Attends adventism service: Not on file Active member of club or organization: Not on file Attends meetings of clubs or organizations: Not on file Relationship status: Not on file Other Topics Concern Not on file Social History Narrative Not on file Allergies Allergies Allergen Reactions Penicillins Hives Medications [facility] [place] Medication Instructions Prior to Surgery JODEE:[id number] Printed on:01/19/19 8469 Medication Information Take last dose on Take the morning of surgery Comment(s) famotidine (PEPCID) 20 MG tablet Take 1 (one) tablet (20 mg total) by mouth 2 (two) times a day for 3 days . Physical Exam Initial Vital Signs BP 115/70 (BP Location: Right arm, Patient Position: Sitting) Pulse 96 Temp (!) 102.9 F (39.4 C) (Oral) Resp 16 Ht 5' 6 Wt 54.4 kg (120 lb) LMP 01/05/2019 SpO2 100% BMI 19.37 kg/m Vital Signs During ED Visit (as charted by nursing) Patient Vitals for the past 24 hrs: BP Temp Temp src Pulse Resp SpO2 Height Weight 01/19/19 1530 115/70 (!) 102.9 F (39.4 C) Oral 96 16 100 % 5' 6 54.4 kg (120 lb) Physical Exam Physical Exam Constitutional: Oriented to person, place, and time. Appears well-developed and well-nourished. No distress. Head: Normocephalic and atraumatic. Right Ear: External ear normal. Left Ear: External ear normal. Eyes: Pupils are equal, round, and reactive to light. Neck: Neck supple. Cardiovascular: Normal rate. Pulmonary/Chest: Effort normal. Abdominal: Soft. Musculoskeletal: Normal range of motion. Exhibits no edema. Neurological: Alert and oriented to person, place, and time. No cranial nerve deficit. Normal muscle tone. Coordination normal. Skin: Skin is warm and dry. Psychiatric: Has a normal mood and affect. Behavior is normal. Judgment and thought content normal. IMPRESSION/ ED COURSE Patient's vitals are stable, except for her temperature that was elevated at 102.9. We did medicate this with Tylenol and Toradol here in the ED and she is feeling somewhat better. Her chest x-ray was clear, however her influenza B was positive. Because she is within the window, did offer her a prescription for Tamiflu and she did accept this. She also will use symptomatic relief at home and I will give her a work note for the next week. She is happy with this plan. She does understand return precautions and will follow up as outpatient. The patient has been advised to see their primary care provider for follow up on any non-critical lab abnormalities, abnormal vital signs, and non-critical radiologic findings. If patient's blood pressure was elevated, patient was instructed to follow up with primary care provider for continued monitoring and evaluation. Warnings/adverse affects associated with all medications I have provided/prescribed today were discussed. If opioids were provided/prescribed, the risks and benefits were discussed, including the risks of addiction and overdose associated with a controlled substance containing an opioid. FINAL DIAGNOSIS 1. Influenza B Labs Reviewed INFLUENZA A,B RAPID MOLECULAR - Abnormal; Notable for the following components: Result Value Influenza B Detected (*) All other components within normal limits Narrative: Test Method: Nucleic Acid Amplification Radiographic Imaging (if any) During ED Visit XR Chest AP/PA and LAT Final Result No acute abnormality. Workstation ID: [id number] Medications Ordered/Given During ED Visit Medications acetaminophen (TYLENOL) tablet 975 mg (975 mg Oral Given 01/19/19 1555) ketorolac (TORADOL) injection 30 mg (30 mg Intramuscular Given 01/19/19 1555) Procedures Mary Beard PA-C 01/19/19 1628 Pt presents with fever, body aches, sore throat and non-productive coughing. documented in this encounter ED PROVIDER NOTE [facility] EM[facility]ENC[facility] NAME: Pipe Gomez AGE: 28 y.o. : 1990 VISIT DATE: 12/13/2018 CSN: [id number] PCP: Physician No Chief Complaint Patient presents with Urticaria HPI This is a very pleasant 28-year-old female comes in complaining of a rash that began last night started worsening throughout the night is very pruritic in nature. Never had this before. But has had it all over her body now never had shortness of breath or wheezing had some swelling in the face specifically around the both eyes. Still has a mild swelling beneath both eyes. No history of this in the past denies any new medications foods detergents soaps perfumes etc. History reviewed. No pertinent past medical history. History reviewed. No pertinent surgical history. History reviewed. No pertinent family history. Social History Socioeconomic History Marital status: Single Spouse name: Not on file Number of children: Not on file Years of education: Not on file Highest education level: Not on file Occupational History Not on file Social Needs Financial resource strain: Not on file Food insecurity: Worry: Not on file Inability: Not on file Transportation needs: Medical: Not on file Non-medical: Not on file Tobacco Use Smoking status: Current Every Day Smoker Packs/day: 0.00 Types: Cigars Smokeless tobacco: Never Used Substance and Sexual Activity Alcohol use: Never Frequency: Never Drug use: Never Sexual activity: Not on file Lifestyle Physical activity: Days per week: Not on file Minutes per session: Not on file Stress: Not on file Relationships Social connections: Talks on phone: Not on file Gets together: Not on file Attends adventism service: Not on file Active member of club or organization: Not on file Attends meetings of clubs or organizations: Not on file Relationship status: Not on file Other Topics Concern Not on file Social History Narrative Not on file Previous Medications Medication Sig [DISCONTINUED] azithromycin (ZITHROMAX) 250 MG tablet zpack . [DISCONTINUED] prenat.vits,bre,tln-toov-nvgyg Tab Take 1 tablet by mouth daily . Allergies Allergen Reactions Penicillins Hives Review of Systems Constitutional: Negative for fatigue and fever. HENT: Negative for ear discharge and hearing loss. Respiratory: Negative for shortness of breath and wheezing. Cardiovascular: Negative for leg swelling. Gastrointestinal: Negative for abdominal pain. Genitourinary: Negative for flank pain and genital sores. Musculoskeletal: Negative for joint swelling. Skin: Positive for rash. Neurological: Negative for light-headedness. Psychiatric/Behavioral: Negative for behavioral problems and dysphoric mood. Patient Vitals for the past 24 hrs: BP Temp Temp src Pulse Resp SpO2 Height Weight 12/13/18 0945 136/72 98.6 F (37 C) Oral 98 16 97 % 5' 6 54.4 kg (120 lb) Physical Exam Vitals signs and nursing note reviewed. Constitutional: Appearance: Normal appearance. HENT: Head: Normocephalic and atraumatic. Nose: Nose normal. Pulmonary: Breath sounds: No wheezing. Musculoskeletal: General: No swelling or deformity. Skin: General: Skin is warm and dry. Findings: Erythema and rash present. Rash is urticarial. Neurological: Mental Status: She is alert. Laboratory & Radiographic Imaging (if done): No results found for this visit on 12/13/18. No orders to display Procedures MDM Number of Diagnoses or Management Options Allergic urticaria: Diagnosis management comments: Allergic urticaria unknown allergen patient with no respiratory complaints no oral swelling. Breathing comfortably patient given triple therapy discharged home given a allergy referral. The patient has been informed that they may have pre-hypertension or hypertension based on a blood pressure reading in the Emergency Department. I recommend that the patient call the primary care provider listed on their discharge instructions or a physician of their choice as soon as possible to arrange follow-up in the next 4 weeks for further evaluation of possible pre-hypertension or hypertension. . Clinical Impression: 1. Allergic urticaria ED Disposition ED Disposition Condition Comment Discharge Stable Pipe Gomez discharged to home/self care in stable condition. Follow-up Information 1. [facility] [place]. [address] [facility] [address] [facility] [address] [place] [phone] Contact information for after-discharge care Follow-up information has not been specified. New Prescriptions predniSONE (DELTASONE) 50 MG tablet Take 1 (one) tablet (50 mg total) by mouth daily for 5 days . famotidine (PEPCID) 20 MG tablet Take 1 (one) tablet (20 mg total) by mouth 2 (two) times a day for 3 days . hydrOXYzine (VISTARIL) 50 MG capsule Take 1 (one) capsule (50 mg total) by mouth 3 (three) times a day as needed for itching . Discontinued Medications Disp Refills Start End azithromycin (ZITHROMAX) 250 MG tablet 6 tablet 0 11/19/2018 12/13/2018 Sig: jeanine . Class: Print prenat.vits,bre,myr-koja-vhceq Tab 30 each 0 12/07/2018 12/13/2018 Sig: Take 1 tablet by mouth daily . Class: Print Route: Oral Lise Mazariegos MD 12/13/18 1014 Pt presents with hives all over body. States they appeared yesterday, took benadryl and they went away. Pt states this am she woke up to the hives again. C/o itching documented in this encounter ED Attestation Note - Aiden Noe MD - 11/19/2018 7:36 PM EDTED Attestation Note - Princess Adkins MD - 11/25/2018 12:07 AM EDT Miscellaneous Notes (unrecog nized section and content) I personally interviewed the patient. I personally examined the patient. I discussed the patient with SPOOL FIXER/PA. I agree with the SPOOL FIXER/PA treatment plan. I agree with the SPOOL FIXER/PA plan of care. I agree with the SPOOL FIXER/PA dispo as documented. The patient has been informed that they may have pre-hypertension or hypertension based on a blood pressure reading in the Emergency Department. I recommend that the patient call the primary care provider listed on their discharge instructions or a physician of their choice as soon as possible to arrange follow-up in the next 4 weeks for further evaluation of possible pre-hypertension or hypertension. . Shared ED note 28-year-old female presents with right-sided chest pain for the past week fever cough productive chest x-rays consistent with a right sided pneumonia. She was educated on the findings will be started on antibiotics advised to rest for the next few days return if worsening symptoms patient also advised to abstain from smoking patient and significant other agree with management and plan of care documented in this encounter I personally interviewed the patient. I personally examined the patient. I discussed the patient with SPOOL FIXER/PA. I agree with the SPOOL FIXER/PA treatment plan. I agree with the SPOOL FIXER/PA plan of care. I agree with the SPOOL FIXER/PA dispo as documented. The patient has been informed that they may have pre-hypertension or hypertension based on a blood pressure reading in the Emergency Department. I recommend that the patient call the primary care provider listed on their discharge instructions or a physician of their choice as soon as possible to arrange follow-up in the next 4 weeks for further evaluation of possible pre-hypertension or hypertension. . Is a very pleasant 28-year-old female who presents emerged from with complaint of chest pain. Location mid to left chest duration onset 2 days ago. The timing is intermittent but last for hours severity moderate to mild mostly mild. Quality dull associated signs and symptoms she felt some slight chills she felt a little hot she had a headache yesterday none today. Context patient was seen here November 19 she had a right lower lobe pneumonia on x-ray she was placed on Zithromax given hydrocodone cough medicine. This made her itch but otherwise she is feeling better said her cough is nearly gone down to the onset very little sputum reduction she only feels some mild short of breath with walking around. Overall reports her condition is improved. But she noted this sensation in her chest as described and thought she should come get checked out having had recent pneumonia. Was in the intensity of the pain that brought her in. Patient had no recent travel or surgery no leg swelling no hemoptysis she has a nonhormonal IUD in place. Pain is slightly worse with laying back but not unmanageable when she lies down so she does need to sit forward or anything to relieve the pain. No abdominal pain nausea vomiting no extremity pain or swelling no numbness or tingling of extremities no rash. On exam she is awake alert appropriate sitting on the cart respirations are unlabored mental status she answers questions follows commands no somnolence or lethargy head is normocephalic and atraumatic. Eyes pupils equal round reactive light extra ocular muscles is intact. Oral mucosa is moist pink posterior pharynx normal area neck is supple without stridor wheeze. Lungs are clear bilaterally no wheezes rales or rhonchi. Heart is regular rate regular rhythm no murmurs rubs abdomen soft nontender flat no guarding rebound distention skin warm dry well-perfused. Extremities no cyanosis no pitting edema. Neurologic exam cranial nerves II through intact gross motor and sensory intact patient awake and appropriate as noted. Patient came in was evaluated as noted d-dimer is negative. EKG does show J- point elevation consideration was given to pericarditis. Chest x-ray improved aeration right lung base compared to previous exam of 11/19/2018. Time of dictation basic CBC troponin are pending. Will rule out myocarditis. Suspect early pericarditis as etiology. Final diagnosis and disposition treatment to be noted in epic. Patient is in no pain respiratory or neurologic distress. Associated Order(s): EKG 12-lead EKG 12-lead Date/Time: 11/24/2018 11:28 PM Performed by: Princess Adkins MD Authorized by: Gaye Marshall PA-C Interpreted by ED attending physician Previous ECG: no previous ECG available Rhythm: sinus rhythm BPM: 54 Conduction: conduction normal normal CA interval normal QRS interval normal QT interval Other findings: early repolarization Clinical impression: abnormal ECG Comments: Significant baseline artifact. T wave inversion lead aVL. J-point elevation in multiple leads II, III, aVF, V3 V4 V5 V6. T wave inversion in aVL. documented in this encounter Associated Order(s): EKG 12-lead EKG 12-lead Date/Time: 12/07/2018 7:43 PM Performed by: Norma Newton MD Authorized by: Chantel North PA-C Interpreted by ED attending physician Comparison: compared with previous ECG Similar to previous ECG Comparison to previous EC11-25-18, 11-21-18 Rhythm: sinus rhythm BPM: 74 ST Segments: ST segments normal T Waves: T waves normal T Inversion: aVL Clinical impression: non-specific ECG I personally interviewed the patient. I personally examined the patient. I discussed the patient with SPOOL FIXER/PA. I agree with the SPOOL FIXER/PA treatment plan. I agree with the SPOOL FIXER/PA plan of care. I agree with the SPOOL FIXER/PA dispo as documented. . . This patient has been to the emergency department 3 times this month. Initially she was seen and diagnosed with right lower lobe pneumonia. She was given a Z-Husam and slowly her symptoms improved and she began to feel better. She was back again on the to the emergency department where she had a d-dimer, troponin, basic blood work and chest x-ray done all which were unremarkable. She was diagnosed with pericarditis and given NSAIDs. This did improve her symptoms. She was feeling asymptomatic for some time. She did start smoking again however. For the past 2 days she has had a return of a dry cough, shortness of breath and anterior chest discomfort without radiation. No exacerbating factors. No pain or swelling her legs. No travel, trauma, surgery. She has a ParaGard, nonhormonal IUD. No history of VTE. No hemoptysis. She is PERC criteria negative. Given the third visit for the symptoms I did offer and recommend a CT scan of her pulmonary arteries to get a better look at her chest. She declines because she has her children with her today. She was however agreeable to basic blood work. We will add a proBNP as well as a troponin to rule out progression of pericarditis. On physical exam she looks very well and nontoxic. She is smiling and interactive. Her heart rate and rhythm are regular without murmur rub or gallop. Her lungs are clear to auscultation. She is in no distress. She has good distal pulses. No swelling of her extremities. Laboratory Results Labs Reviewed CBC AND DIFFERENTIAL Narrative: The following orders were created for panel order CBC w/ Diff. Procedure Abnormality Status --------- ------ CBC Auto Differential[[id number]] Please view results for these tests on the individual orders. CHEM 7 NT PRO BNP TROPONIN POC , URINE CBC WITH AUTO DIFFERENTIAL Imaging Results XR Chest AP/PA and LAT Final Result 1. No acute cardiopulmonary disease. Right lower lobe pneumonia has resolved. Workstation ID: [id number] Old records reviewed documented in this encounter ED Attestation I was personally available in the department for consult for the patient. I have reviewed the chart. I agree with the assessment, treatment, and disposition provided by the Advanced Practice Provider. documented in this encounter INFORMATION SOURCE (unrecogn ized section and content) DATE CREATED AUTHOR 01/27/2019 [facility] DATE CREATED AUTHOR AUTHOR'S ORGANIZ ATION 09/02/2019 [facility] DATE CREATED AUTHOR AUTHOR'S ORGANIZ ATION 09/02/2019 [facility] DATE CREATED AUTHOR AUTHOR'S ORGANIZ ATION 11/20/2021 [facility] Goals (unrecognized section and content) Goals may be documented in a n alternate sectionGoals may be documented in an alternate section FOR RECORDS PERTAINING TO PATIENTS WHO ARE OR HAVE BEEN ENROLLED IN A CHEMICAL DEPENDENCY/SUBSTANCEABUSE PROGRAM, SOME INFORMATION MAY BE OMITTED. This clinical summary was aggregated from multiple sources. Caution should be exercised in using it in the provision of clinical care. This summary normalizes information from multiple sources, and as a consequence, information in this document may materially change the coding, format and clinical context of patient data. In addition, data may be omitted in some cases. CLINICAL DECISIONS SHOULD BE BASED ON THE PRIMARY CLINICAL RECORDS. [facility] [employer] [facility]. provides no warranty or guarantee of the accuracy or completeness of information in this document.
--- NOTE | 2024-10-01 17:46 | CM.ED ---
Date of referral: 10/01/24 Reason for referral: No Primary Care Physician (PCP) Referred by: Social Work Identification Patient provided consent for visit. Patient confirmed she has not yet gotten established with a PCP as she just moved here from [place]. 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 which patient accepted and expressed appreciation for. Margaret Norris, LIFT MECHANIC, DIVING SUPERVISOR
[2024-10-01 17:55] VITALS: BP 104/77; PULSE 95; RESP 18; TEMP 36.6; O2SAT 100
== END 2024-10-01 17:58 | disposition home or self-care (01) ==
PROVIDERS: Emergency Provider Emergency Medicine; Visit Provider Emergency Medicine
DX: S16.1XXA Strain of muscle, fascia and tendon at neck level, initial encounter (principal); S29.012A Strain of muscle and tendon of back wall of thorax, initial encounter; F17.210 Nicotine dependence, cigarettes, uncomplicated; X50.9XXA Other and unspecified overexertion or strenuous movements or postures, initial encounter
CPT/HCPCS: 99283